=== PATIENT | female | born 1980 | race African-American/Black ===

== ENCOUNTER 2016-07-01 18:18 | Observation (INO) | payer OTHER ==
[~2016-07-01] VITALS: Ht 180.3 cm; Wt 150.0 kg
[2016-07-01 18:21] VITALS: BP 169/78; PULSE 119; RESP 16; TEMP 98.7; O2SAT 99
--- NOTE | 2016-07-01 18:26 | PD ---
Physical Exam Time Seen by Provider: 18:23 Narrative 35yo F c/o elevated BP reading, BRAUN, chest pain, and SOB today. Takes BP medication and only took one of her two medications today. Denies vomiting. Patient stable. Patient seen in triage. Awaiting bed placement. Data Data Last Documented VS Vital Signs Date Time Temp Pulse Resp B/P Pulse Ox O2 Delivery O2 Flow Rate FiO2 07/01/16 18:21 98.7 119 16 169/78 99 MDM Supervised Visit with MITCHELL: Michelle Walker Jul 01, 2016 18:26
--- NOTE | 2016-07-01 18:32 | PD ---
HPI Chief Complaint: Chest Pain Time Seen by Provider: 18:32 Travel History International Travel<30 days: No Contact w/Intl Traveler<30days: No Traveled to known affect area: No History of Present Illness HPI 35-year-old female with history of DM, HTN, CVA April 2016 presents to the ED for evaluation of headache, high blood pressure and left-sided chest pain. Headache described as constant, dull, all over, similar to previous headaches. Chest pain onset yesterday while the patient was having an argument. She endorses accompanying nausea, palpitations. She states the episode lasted approximately 10-15 minutes before resolving spontaneously. Patient's friend is at bedside states that the patient had an episode of dizziness today. They took her blood pressure and it was 225/175. The patient endorses compliance with her daily medications. She states that she was taken to [facility] after her stroke. She was discharged, but has no primary care or neurology follow-up. She states that she was instructed to have speech therapy, occupational therapy and physical therapy. She states that she had a stroke while she was incarcerated and prior to that was homeless. PFSH Past Medical History Cardiovascular Problems: Yes (HTN ) Diabetes: Yes Respiratory: Yes (ASTHMA ) ?: Not LMP: A MONTH AGO Social History Tobacco Use: No Substance Use: Yes (history) Allergies-Medications (Allergen,Severity, Reaction): Coded Allergies: No Known Allergies (Unverified , 07/01/16) Reported Meds & Prescriptions Reported Meds & Active Scripts Active Reported Atorvastatin (Atorvastatin Calcium) 40 Mg Tab 40 Mg PO HS Amlodipine (Amlodipine Besylate) 10 Mg Tab 10 Mg PO DAILY Metformin (Metformin HCl) 500 Mg Tab 500 Mg PO BID With meals Klonopin (Clonazepam) 0.5 Mg Tab 0.5 Mg PO DAILY Zoloft (Sertraline HCl) 100 Mg Tab 100 Mg PO DAILY Review of Systems Except as stated in HPI: all other systems reviewed are Neg Physical Exam Narrative GENERAL: Well-nourished, well-developed pleasant, cooperative obese black female in no acute distress. SKIN: Focused skin assessment warm/dry. HEAD: Normocephalic. EYES: No scleral icterus. No injection or drainage. PERRLA. EOMI NECK: Supple, trachea midline. No JVD or lymphadenopathy. CARDIOVASCULAR: Regular rate and rhythm without murmurs, gallops, or rubs. 2+ DP and radial pulses bilaterally. CHEST: Nontender throughout without deformity or crepitance. No retractions or use of accessory muscles. RESPIRATORY: Breath sounds clear and equal bilaterally. . GASTROINTESTINAL: Abdomen soft, non-tender, nondistended. MUSCULOSKELETAL: No cyanosis, or edema. NEUROLOGICAL: Awake and alert. Cranial nerves II through XII intact. Motor and sensory grossly within normal limits. Five out of 5 muscle strength in all muscle groups. Mildly slurred speech. Residual right-sided deficit, patient statesthis is her normal. BACK: Nontender without obvious deformity. No CVA tenderness. Data Data Last Documented VS Orders Electrocardiogram (07/01/16 18:35) Basic Metabolic Panel (Bmp) (07/01/16 18:35) Ckmb (Isoenzyme) Profile (07/01/16 18:35) Complete Blood Count With Diff (07/01/16 18:35) Magnesium (Mg) (07/01/16 18:35) Prothrombin Time / Inr (Pt) (07/01/16 18:35) Act Partial Throm Time (Ptt) (07/01/16 18:35) Troponin I (07/01/16 18:35) Chest, Single Ap (07/01/16 18:35) Ecg Monitoring (07/01/16 18:35) Bilateral Bp Monitoring (07/01/16 18:35) Iv Access Insert/Monitor (07/01/16 18:35) Oximetry (07/01/16 18:35) Sodium Chloride 0.9% Flush (Ns Flush) (07/01/16 18:45) Ct Brain W/O Iv Contrast(Rout) (07/01/16 18:47) CKMB (07/01/16 18:50) CKMB% (07/01/16 18:50) Sodium Chlor 0.9% 1000 Ml Inj (Ns 1000 M (07/01/16 19:45) D-Dimer (07/01/16 20:25) Ibuprofen (Motrin) (07/01/16 21:00) Place In Observation (07/01/16 21:25) Activity Bed Rest With Brp (07/01/16 21:25) Vital Signs (Adult) Q4H (07/01/16 21:25) Cardiac Rhythm .As Directed (07/01/16 21:25) Notify Dr: Other .PRN (07/01/16 21:25) Notify Parameters (07/01/16 21:25) Resp Oxygen Nasal Cannula (07/01/16 ) Ckmb (Isoenzyme) Profile (07/01/16 21:25) Ckmb (Isoenzyme) Profile (07/02/16 00:25) Troponin I (07/01/16 21:25) Troponin I (07/02/16 00:25) Electrocardiogram (07/01/16 21:25) Electrocardiogram (07/02/16 00:25) ^ Obtain (07/01/16 21:25) Sodium Chloride 0.9% Flush (Ns Flush) (07/01/16 21:30) Sodium Chloride 0.9% Flush (Ns Flush) (07/02/16 09:00) Sales And Service Advisor / Telemetry [email or web address] (07/01/16 21:25) Admit Order (Ed Use Only) (07/01/16 21:25) CKMB (07/01/16 21:05) CKMB% (07/01/16 21:05) Labs MDM Medical Decision Making Medical Screen Exam Complete: Yes Emergency Medical Condition: Yes Differential Diagnosis Hypertensive urgency versus CVA versus chest pain versus ACS versus PE versus other Narrative Course 35-year-old female with history of DM, HTN, CVA April 2016 presents to the ED for evaluation of headache, high blood pressure and left-sided chest pain. Headache described as constant, dull, all over, similar to previous headaches. Chest pain onset yesterday while the patient was having an argument. She endorses accompanying nausea, palpitations. She states the episode lasted approximately 10-15 minutes before resolving spontaneously. Patient's friend is at bedside states that the patient had an episode of dizziness today. They took her blood pressure and it was 225/175. The patient endorses compliance with her daily medications. She has a history of non-IV drug use. Unsure of family cardiac history. Vitals reviewed. Physical exam reveals an obese black female in no acute distress. No discernible M/R/G. No tenderness to palpation of the precordium. Chest CTAB. Abdomen protuberant, nontender. No swelling of the lower extremities. IV was established. Patient was placed on continuous monitoring. No concerning abnormalities of CBC, CMP or UA. Cardiac enzymes negative 1. D-dimer negative. Chest x-ray poorly aerated but negative for acute process. CT of the head shows no acute disease per radiology read. EKG rate 105, sinus rhythm. Normal axis. No ST changes, reviewed by Dr. Bell. Patient was administered ibuprofen and reports improvement of her headache. We'll admit for serial cardiac enzymes and EKGs. Please see chest pain center notes for disposition. Bailey Booker Jul 01, 2016 18:32 Mean Platelet Volume 10.2 FL Neutrophils (%) (Auto) 63.6 % Lymphocytes (%) (Auto) 27.6 % Monocytes (%) (Auto) 7.2 % Eosinophils (%) (Auto) 1.3 % Basophils (%) (Auto) 0.3 % Neutrophils # (Auto) 8.2 TH/MM3 Lymphocytes # (Auto) 3.5 TH/MM3 Monocytes # (Auto) 0.9 TH/MM3 Eosinophils # (Auto) 0.2 TH/MM3 Basophils # (Auto) 0.0 TH/MM3 CBC Comment DIFF FINAL Differential Comment Prothrombin Time 9.8 SEC Prothromb Time International 0.9 RATIO Ratio Activated Partial 27.7 SEC Thromboplast Time D-Dimer Quantitative (PE/DVT) 0.39 MG/L FEU Sodium Level 138 MEQ/L Potassium Level 4.0 MEQ/L Chloride Level 101 MEQ/L Carbon Dioxide Level 31.1 MEQ/L Anion Gap 6 MEQ/L Blood Urea Nitrogen 9 MG/DL Creatinine 0.79 MG/DL Estimat Glomerular Filtration 82 ML/MIN Rate Random Glucose 136 MG/DL Calcium Level 8.7 MG/DL Magnesium Level 2.0 MG/DL Total Creatine Kinase 152 U/L Creatine Kinase MB LESS THAN 0.5 NG/ML Troponin I LESS THAN 0.02 NG/ML MDM Medical Decision Making Medical Screen Exam Complete: Yes Emergency Medical Condition: Yes Differential Diagnosis Hypertensive urgency versus CVA versus chest pain versus ACS versus PE versus other Narrative Course 35-year-old female with history of DM, HTN, CVA April 2016 presents to the ED for evaluation of headache, high blood pressure and left-sided chest pain. Headache described as constant, dull, all over, similar to previous headaches. Chest pain onset yesterday while the patient was having an argument. She endorses accompanying nausea, palpitations. She states the episode lasted approximately 10-15 minutes before resolving spontaneously. Patient's friend is at bedside states that the patient had an episode of dizziness today. They took her blood pressure and it was 225/175. The patient endorses compliance with her daily medications. She has a history of non-IV drug use. Unsure of family cardiac history. Vitals reviewed. Physical exam reveals an obese black female in no acute distress. No discernible M/R/G. No tenderness to palpation of the precordium. Chest CTAB. Abdomen protuberant, nontender. No swelling of the lower extremities. IV was established. Patient was placed on continuous monitoring. No concerning abnormalities of CBC, CMP or UA. Cardiac enzymes negative 1. D-dimer negative. Chest x-ray poorly aerated but negative for acute process. CT of the head shows no acute disease per radiology read. EKG rate 105, sinus rhythm. Normal axis. No ST changes, reviewed by Dr. Bell. Patient was administered ibuprofen and reports improvement of her headache. We'll admit for serial cardiac enzymes and EKGs. Please see chest pain center notes for disposition. Bailey Booker Jul 01, 2016 18:32
[2016-07-01 18:39] VITALS: RESP 16; TEMP 99; O2SAT 99
[2016-07-01] MEDS ORDERED: SODIUM CHLORIDE 0.9% FLUSH 10 ML FLUSH IVF PRN (18:45)
--- NOTE | 2016-07-01 19:08 | RADRPT ---
EXAM DATE/TIME: 07/01/2016 18:53 [facility] COMPARISON: No previous studies available for comparison. INDICATIONS : Chest pain MEDICAL HISTORY : Hypertension. SURGICAL HISTORY : None. ENCOUNTER: Initial ACUITY: 1 day PAIN SCORE: 4/10 LOCATION: Bilateral chest FINDINGS: Shallow lung volumes. Cardiomegaly. No definite consolidation or effusion. Mild basilar atelectasis. CONCLUSION: Shallow lung volumes limit this study. Vinay Macedo MD on July 01, 2016 at 19:06 Board Certified Radiologist. This report was verified electronically.
[2016-07-01] MEDS ORDERED: METF500T PO (19:12)
[2016-07-01] MEDS ORDERED: CLON.5 PO (19:12)
[2016-07-01] MEDS ORDERED: ZOLO100T PO (19:12)
[2016-07-01] MEDS ORDERED: ATOR40TA16 PO (19:12)
[2016-07-01] MEDS ORDERED: AMLO10TA2 PO (19:12)
[2016-07-01 19:21] LABS: APTT (PATIENT) 27.7 SEC (24.3-30.1); INTERNATIONAL NORMALIZED RATIO 0.9 RATIO; PROTHROMBIN TIME - PATIENT 9.8 SEC (9.8-11.6)
[2016-07-01 19:26] LABS: AUTOMATED NEUTROPHIL # 8.2 TH/MM3 (1.8-7.7); BASOPHIL % 0.3 % (0.0-2.0); EOSINOPHIL # 0.2 TH/MM3 (0-0.4); EOSINOPHIL % 1.3 % (0.0-4.0); HEMATOCRIT 37.2 % (35.0-46.0); HEMO FLAGS DIFF FINAL; LYMPH % 27.6 % (9.0-44.0); LYMPHOCYTE # 3.5 TH/MM3 (1.0-4.8); MEAN CELL VOLUME 88.3 FL (80.0-100.0); MEAN CORPUSCULAR HEMOGLOBIN 28.4 PG (27.0-34.0); MEAN CORPUSCULAR HGB CONC 32.2 % (32.0-36.0); MONO % 7.2 % (0.0-8.0); NEUT % 63.6 % (16.0-70.0); PLATELET COUNT 261 TH/MM3 (150-450); RED BLOOD COUNT 4.21 MIL/MM3 (4.00-5.30); RED CELL DISTRIBUTION WIDTH 14.3 % (11.6-17.2); WHITE BLOOD COUNT 12.8 TH/MM3 (4.0-11.0)
[2016-07-01 19:39] LABS: ANION GAP 6 MEQ/L (5-15); BICARBONATE 31.1 MEQ/L (21.0-32.0); BLOOD UREA NITROGEN 9 MG/DL (7-18); CHLORIDE 101 MEQ/L (98-107); CREATINE KINASE 152 U/L (26-192); GLOMERULAR FILTRATION RATE 82 ML/MIN (>89); SODIUM (NA) 138 MEQ/L (136-145)
--- NOTE | 2016-07-01 19:39 | RADRPT ---
EXAM DATE/TIME: 07/01/2016 19:15 [facility] COMPARISON: No previous studies available for comparison. INDICATIONS : Dizziness and cephalgia. RADIATION DOSE: 56.35 CTDIvol (mGy) MEDICAL HISTORY : Cardiovascular disease. Hypertension. Diabetes mellitus type 2.CVA. SURGICAL HISTORY : None. ENCOUNTER: Initial ACUITY: 1 day PAIN SCALE: 3/10 LOCATION: Right cranial TECHNIQUE: Multiple contiguous axial images were obtained of the head. Using automated exposure control and adj ustment of the mA and/or kV according to patient size, radiation dose was kept as low as reasonably a chievable to obtain optimal diagnostic quality images. FINDINGS: No hemorrhage, infarct, or mass. There are prominent diffuse dural calcifications identified no fract ures are seen. CONCLUSION: No acute disease. Vinay Macedo MD on July 01, 2016 at 19:36 Board Certified Radiologist. This report was verified electronically.
[2016-07-01] MEDS ORDERED: SODIUM CHLOR 0.9% 1000 ML INJ 1,000 ML IV ONE (19:45)
[2016-07-01 19:51] LABS: CKMB LESS THAN 0.5 NG/ML (0.5-3.6)
[2016-07-01 20:58] VITALS: BP 160/72; PULSE 102; RESP 20; TEMP 98.6; O2SAT 98
[2016-07-01] MEDS ORDERED: IBUPROFEN 800 MG TAB PO ONE (21:00)
[2016-07-01] MEDS ORDERED: SODIUM CHLORIDE 0.9% FLUSH 10 ML FLUSH IV FLUSH PRN (21:30)
[2016-07-01 22:41] VITALS: BP 151/93; PULSE 100; RESP 22; TEMP 98; O2SAT 98
[2016-07-01 23:37] LABS: CREATINE KINASE 113 U/L (26-192)
[2016-07-01] MEDS ORDERED: ACETAMINOPHEN/HYDROcodone 325 MG/5 MG TAB PO ONE (23:45)
[2016-07-01 23:49] LABS: CKMB LESS THAN 0.5 NG/ML (0.5-3.6)
[2016-07-02 01:26] VITALS: BP 134/79; PULSE 97; RESP 18; TEMP 99.4; O2SAT 96
[2016-07-02 02:10] LABS: CREATINE KINASE 99 U/L (26-192)
[2016-07-02 05:26] VITALS: BP 162/89; PULSE 92; RESP 18; TEMP 98.9; O2SAT 96
[2016-07-02 07:58] VITALS: O2SAT 95
--- NOTE | 2016-07-02 08:38 | EKG ---
Date Performed: 07/02/2016 Time Performed: 00:56:23 PTAGE: 35 years EKG: Sinus rhythm WITH SINUS ARRHYTHMIA NONSPECIFIC T-WAVE ABNORMALITY BORDERLINE ECG PREVIOUS TRACING : 07/01/2016 21.09 Compared to previous tracing, nonspecific T wave abnormalit y is now evident. DOCTOR: Rafa Medeiros Interpretating Date/Time 07/02/2016 08:37:11
[2016-07-02 08:39] VITALS: BP 126/74; PULSE 81; RESP 18; TEMP 97.8; O2SAT 100
[2016-07-02] MEDS ORDERED: DEXTROSE 50% IN WATER 50 ML VIAL(D50) IV PRN (08:45)
[2016-07-02] MEDS ORDERED: GLUCAGON 1 MG/ML VIAL IM/SQ PRN (08:45)
--- NOTE | 2016-07-02 08:45 | EKG ---
Date Performed: 07/01/2016 Time Performed: 21:09:45 PTAGE: 35 years EKG: Sinus rhythm NORMAL ECG PREVIOUS TRACING : 07/01/2016 18.51 No significant change from previous tracing noted. DOCTOR: Rafa Medeiros Interpretating Date/Time 07/02/2016 08:44:37
--- NOTE | 2016-07-02 08:54 | EKG ---
Date Performed: 07/01/2016 Time Performed: 18:51:52 PTAGE: 35 years EKG: SINUS TACHYCARDIA NONSPECIFIC T-WAVE ABNORMALITY ABNORMAL RHYTHM ECG NO PREVIOUS TRACING DOCTOR: Rafa Medeiros Interpretating Date/Time 07/02/2016 08:51:05
--- NOTE | 2016-07-02 08:58 | HHI.HP ---
HPI Primary Care Physician No Primary Care Physician Chief Complaint Chest pain History of Present Illness This is a 35-year-old female that presents to ED complaining of chest discomfort that began 2 days ago. The first episode last about 15-20 minutes. That was 2 days ago. Yesterday she had a similar discomfort lasting same. Time but reoccurred over the next 3-4 hours. She also complaining of a headache. She was concerned and checked her blood pressure and found it to be 199/168. She then states that she had not taken her amlodipine for several days. States she had run out of it. She then decided to come to the ED. States she history of hypertension diabetes hyperlipidemia and had a CVA in April. She was in [place] when that occurred. She has no local doctor at this time. She has all the other medications that she should be taking. She lives with her mother. Denies . Review of Systems General: Patient denies fevers, chills recent, and recent travel HEENT: Patient had a headache yesterday. Patient denies sore throat, difficulty swallowing. Cardiovascular: Has the chest discomfort as mentioned above. Denies sensation of heart beating rapidly or irregularly. No syncope. Denies diaphoresis. Respiratory: She was short of breath initially. Denies inspirational chest discomfort. Denies coughing wheezing or hemoptysis. GI: Patient denies nausea, vomiting, diarrhea, abdominal pain, bloody stools. Musculoskeletal: Patient denies joint pain or edema. Denies calf pain or edema. Neurovascular: Patient denies numbness, tingling in extremities. She had a headache yesterday. She complains sequelae from her stroke resulting in right- sided weakness and speech changes but this is unchanged from her stroke. Endocrine: Denies polyuria and polydipsia. Hematologic: Denies easy bruising. Skin: Denies rash or itching. Past Family Social History Allergies: Coded Allergies: No Known Allergies (Unverified , 07/01/16) Past Medical History Hypertension, hyperlipidemia, diabetes, CVA. Denies CAD. Past Surgical History Noncontributory. Reported Medications Reported Meds & Active Scripts Active Reported Atorvastatin (Atorvastatin Calcium) 40 Mg Tab 40 Mg PO HS Amlodipine (Amlodipine Besylate) 10 Mg Tab 10 Mg PO DAILY Metformin (Metformin HCl) 500 Mg Tab 500 Mg PO BID With meals Klonopin (Clonazepam) 0.5 Mg Tab 0.5 Mg PO DAILY Zoloft (Sertraline HCl) 100 Mg Tab 100 Mg PO DAILY Active Ordered Medications Current Medications Medications (Trade) Dose Ordered Sig/Randi Route Start Time Stop Time Status Last Admin (NS Flush) 2 ml UNSCH PRN IVF 07/01/16 18:45 (NS Flush) 2 ml UNSCH PRN IV FLUSH 07/01/16 21:30 (NS Flush) 2 ml BID IV FLUSH 07/02/16 09:00 (Norvasc) 10 mg DAILY PO 07/02/16 09:00 UNV (Lipitor) 40 mg HS PO 07/02/16 21:00 UNV (KlonoPIN) 0.5 mg DAILY PO 07/02/16 09:00 UNV (Zoloft) 100 mg DAILY PO 07/02/16 09:00 UNV (D50w (Vial) Inj) 25 ml UNSCH PRN IV 07/02/16 08:45 UNV (Glucagon Inj) 1 mg UNSCH PRN IM/SQ 07/02/16 08:45 UNV Family History She is unaware of her family medical history. Social History Patient does not smoke, use alcohol, or use illicit drugs. Physical Exam Vital Signs Vital Signs Date Time Temp Pulse Resp B/P Pulse Ox O2 Delivery O2 Flow Rate FiO2 07/02/16 08:39 97.8 81 18 126/74 100 07/02/16 05:26 98.9 92 18 162/89 96 07/02/16 01:26 99.4 97 18 134/79 96 07/02/16 01:18 16 07/01/16 22:41 98.0 100 22 151/93 98 07/01/16 20:58 98.6 102 20 160/72 98 Room Air 07/01/16 18:39 16 99 Room Air 07/01/16 18:21 98.7 119 16 169/78 99 Physical Exam GENERAL: This is a well-nourished, well-developed patient, in no apparent distress. Patient speaks in clear complete sentences. Patient is pleasant. Patient is morbidly obese. HEENT: Head is atraumatic and normocephalic. Neck is supple without lymphadenopathy and trachea is midline. No JVD or carotid bruits. CARDIOVASCULAR: Regular rate and rhythm without murmurs, gallops, or rubs. RESPIRATORY: Clear to auscultation. Breath sounds equal bilaterally. No wheezes , rales, or rhonchi. Chest wall is nontender. No use of accessory muscles. GASTROINTESTINAL: Abdomen is nontender, nondistended. Abdomen soft. No obvious pulsatile mass or bruit. No CVA tenderness. Strong femoral pulses bilaterally. Normal bowel sounds in all quadrants. MUSCULOSKELETAL: Patient is moving upper and lower extremities however right side is 3 out of 5.. No calf tenderness or edema, no Homans sign. Strong pulses in upper and lower extremities. NEUROLOGICAL: Patient is alert and oriented. Cranial nerves 2-12 are grossly intact. No focal deficits and speech is clear. SKIN: No rash and turgor is normal. Laboratory Laboratory Tests Test 07/01/16 07/01/16 07/02/16 18:50 21:05 00:50 White Blood Count 12.8 Red Blood Count 4.21 Hemoglobin 12.0 Hematocrit 37.2 Mean Corpuscular Volume 88.3 Mean Corpuscular Hemoglobin 28.4 Mean Corpuscular Hemoglobin 32.2 Concent Red Cell Distribution Width 14.3 Platelet Count 261 Mean Platelet Volume 10.2 Neutrophils (%) (Auto) 63.6 Lymphocytes (%) (Auto) 27.6 Monocytes (%) (Auto) 7.2 Eosinophils (%) (Auto) 1.3 Basophils (%) (Auto) 0.3 Neutrophils # (Auto) 8.2 Lymphocytes # (Auto) 3.5 Monocytes # (Auto) 0.9 Eosinophils # (Auto) 0.2 Basophils # (Auto) 0.0 CBC Comment DIFF FINAL Differential Comment Prothrombin Time 9.8 Prothromb Time International 0.9 Ratio Activated Partial 27.7 Thromboplast Time D-Dimer Quantitative (PE/DVT) 0.39 Sodium Level 138 Potassium Level 4.0 Chloride Level 101 Carbon Dioxide Level 31.1 Anion Gap 6 Blood Urea Nitrogen 9 Creatinine 0.79 Estimat Glomerular Filtration 82 Rate Random Glucose 136 Calcium Level 8.7 Magnesium Level 2.0 Total Creatine Kinase 152 113 99 Creatine Kinase MB LESS THAN 0.5 LESS THAN 0.5 Troponin I LESS THAN 0.02 LESS THAN 0.02 LESS THAN 0.02 Result Diagram: 07/01/16 18507/01/16 185 Imaging Last [address] 07/01/16 852 Signed Impressions: Service Date/Time: Friday, July 01, 2016 19:15 - CONCLUSION: No acute disease. Vinay Macedo MD Chest X-Ray 07/01/16 1835 Signed Impressions: Service Date/Time: Friday, July 01, 2016 18:53 - CONCLUSION: Shallow lung volumes limit this study. Vinay Macedo MD Course EKGs a sinus rhythm without significant ST segment depressions or elevations. Assessment and Plan Assessment and Plan * Chest pain: Patient has had serial cardiac enzymes and EKGs for ruling out purposes. She has been seen by Dr. Mcgregor of cardiology in the chest pain center and will undergo a Lexiscan. She'll be discharged of Lexiscan is nonischemic. She will need follow-up with a local primary care physician. * Hypertension: Patient ran out of her medication. Amlodipine will be restarted. * Hyperlipidemia: Continue current medication. * History of CVA: Patient is to continue medication. She needs to take aspirin. She will need to follow-up local physician. * Morbid obesity: Patient has been counseled on importance of diet, excess, and weight loss. * Diabetes: Patient is follow diabetic diet. She will resume her home medications at discharge. Horacio Gorman Jul 02, 2016 08:58
[2016-07-02] MEDS ORDERED: SERTRALINE HCL 100 MG TAB PO SCH (09:00)
[2016-07-02] MEDS ORDERED: SODIUM CHLORIDE 0.9% FLUSH 10 ML FLUSH IV FLUSH SCH (09:00)
[2016-07-02] MEDS ORDERED: clonazePAM 0.5 MG TAB PO SCH (09:00)
[2016-07-02] MEDS ORDERED: INSULIN ASPART SUPPLEMENTAL SCALE SQ SCH (11:00)
[2016-07-02] MEDS ORDERED: REGADENOSON INJ 0.4 MG/5 ML SYR ONE (11:31)
[2016-07-02] MEDS ORDERED: AMINOPHYLLINE INJ 250 MG/10 ML VIAL ONE (12:06)
--- NOTE | 2016-07-02 14:17 | RADRPT ---
EXAM DATE/TIME: 07/02/2016 10:36 [facility] COMPARISON: No previous studies available for comparison. INDICATIONS : Left chest pain with nausea. Angina. DOSE: 35.0 mCi Tc99m Myoview at stress. 11.0 mCi Tc99m Myoview at rest. 0.4 mg Lexiscan STRESS SYMPTOMS: Stomach pain and dyspnea. MEDICATIONS: 1.) 100 mg Aminophylline IV EJECTION FRACTION: 40% MEDICAL HISTORY : Hypercholesterolemia. Diabetes mellitus type 2. Hypertension. Stroke. SURGICAL HISTORY : Dilation and Curettage. ENCOUNTER: Initial ACUITY: 2 days PAIN SCALE: 6/10 LOCATION: Left chest TECHNIQUE: The patient underwent pharmacologic stress with infusion of prescribed dose. Continuous ECG tracing was monitored during stress. Gated SPECT imaging was performed after stress and conventional SPECT i maging was performed at rest. The examination was performed on a SPECT/CT scanner, both attenuation and non-corrected datasets were reviewed. FINDINGS: DISTRIBUTION: The maximum perfused segment at stress is in the inferior wall. PERFUSION STUDY: The pattern of perfusion at stress is within normal limits with no reversibility to suggest ischemia. Minimal apical thinning. GATED STUDY: Sluggish wall motion with paradoxical motion in the apex. CONCLUSION: 1. No scintigraphic findings of ischemia. 2. However, there is diffuse hypokinesis with paradoxical motion in the apex and a reduced ejection f raction of 40%. RISK CATEGORY: Low (<1% Annual Mortality Rate) Geovany Atkins MD on July 02, 2016 at 14:10 Board Certified Radiologist. This report was verified electronically.
[2016-07-02] MEDS ORDERED: ASPI1TAB69 PO (14:45)
--- NOTE | 2016-07-02 14:47 | HHI.DCPOC ---
Discharge Care Plan Diagnosis: (1) Chest pain (2) Hypertension (3) Hyperlipidemia (4) DM (diabetes mellitus) (5) History of CVA (cerebrovascular accident) (6) Obesity Goals to Promote Your Health * To prevent worsening of your condition and complications * To maintain your health at the optimal level Directions to Meet Your Goals Take your medications as prescribed Follow your dietary instruction Follow activity as directed Keep your appointments as scheduled Take your immunizations and boosters as scheduled If your symptoms worsen call your PCP, if no PCP go to Urgent Care Center or Emergency Room Smoking is Dangerous to Your Health. Avoid second hand smoke Call the 24-hour hour crisis hotline for domestic abuse at Horacio Gorman Jul 02, 2016 14:47
[2016-07-02 15:18] VITALS: BP 167/83; PULSE 93; RESP 23; TEMP 99.7; O2SAT 98
--- NOTE | 2016-07-02 17:28 | TR ---
Date Performed: 07/02/2016 Time Performed: 11:29:22 DOCTOR: Casandra Mcgregor DRUG LIST: CLINICAL HISTORY: REASON FOR TEST: Angina REASON FOR ENDING: OBSERVATION: CONCLUSION: Lexiscan stress test was performed under standard four minute protocol. Radionuclid e was injected one minute prior to ending the test. No electrocardiographic abormalities were present to suggest ischemia. Nuclear imaging and interpretation are pending. COMMENTS:
[2016-07-02] MEDS ORDERED: ATORVASTATIN 40 MG TAB PO SCH (21:00)
== END 2016-07-02 15:48 | disposition home or self-care (01) ==
LOC: NEPE 18:18 → NEDA 21:27 → NEPGCP 22:19
PROVIDERS: ADMIT Internal Medicine Cardiovascular Disease; ATTEND Internal Medicine Cardiovascular Disease
DX: R07.89 Other chest pain (principal); I10 Essential (primary) hypertension; E78.5 Hyperlipidemia, unspecified; E11.69 Type 2 diabetes mellitus with other specified complication; R94.31 Abnormal electrocardiogram [ECG] [EKG]; J45.909 Unspecified asthma, uncomplicated; E66.01 Morbid (severe) obesity due to excess calories; Z68.42 Body mass index [BMI] 45.0-49.9, adult; Z86.73 Personal history of transient ischemic attack (TIA), and cerebral infarction without residual deficits
CPT/HCPCS: 70450; 71010; 78452; 80048; 82550; 82552; 82948; 83735; 84484; 85025; 85379; 85610; 85730; 93005; 93017; 99285; A9502; G0378; J0280; J2785; J7030

== ENCOUNTER 2016-07-30 18:52 | Emergency (ER) | payer OTHER ==
[~2016-07-30] VITALS: Ht 180.3 cm; Wt 165.0 kg
[~2016-07-30 18:52] MED LIST: AMLO10TA2 PO; ASPI1TAB69 PO; ATOR40TA16 PO; CLON.5 PO; METF500T PO; ZOLO100T PO
[2016-07-30 19:07] VITALS: BP 165/126; PULSE 110; RESP 23; TEMP 99.3; O2SAT 100
[2016-07-30] MEDS ORDERED: SODIUM CHLOR 0.9% 1000 ML INJ 1,000 ML IV SCH (19:13)
[2016-07-30 19:15] VITALS: PULSE 106; RESP 16; O2SAT 100
[2016-07-30] MEDS ORDERED: SODIUM CHLORIDE 0.9% FLUSH 10 ML FLUSH IV FLUSH PRN (19:15)
[2016-07-30] MEDS ORDERED: MORPHINE SULFATE 4 MG/ML INJ IV PUSH ONE (19:15)
[2016-07-30] MEDS ORDERED: ONDANSETRON HCL 4 MG/2 ML VIAL IVP ONE (19:15)
--- NOTE | 2016-07-30 19:28 | PD ---
HPI Chief Complaint: Abdominal Pain Time Seen by Provider: 19:06 Travel History International Travel<30 days: No Contact w/Intl Traveler<30days: No Traveled to known affect area: No History of Present Illness HPI Patient is a 35-year-old female with history of CVA, DM, HTN, April 2016 presents to emergency room with complaints of abdominal pain. She reports that she woke up this morning began to have lower abdominal pain. She reports that she has greatest pain to her umbilicus. Patient reports that every time she eats, she feels nauseous and vomits it up. Reports that she did have a few episodes of diarrhea today. Patient denies any sick contacts, denies any fevers or chills. Patient denies any vaginal discharge or bleeding. Reports that she has never had pain like this in the past. Patient denies any recent travels. Patient with no chest pain or shortness of breath at this time, no other complaints. PFSH Past Medical History Cardiovascular Problems: Yes (OK 2 WEEKS AGO) High Cholesterol: Yes Cerebrovascular Accident: Yes (X2) Diabetes: Yes Patient Takes Glucophage: No (UNKNOWN) Glaucoma: Yes Hypertension: Yes Respiratory: Yes Tetanus Vaccination: Unknown Influenza Vaccination: No ?: Not LMP: 07/22/16 Ovarian Cysts: Yes Dilation and Curettage (D&C): Yes Past Surgical History Genitourinary Surgery: Yes (OVARIAN CYST REMOVAL ) Social History Alcohol Use: Yes (occasional) Tobacco Use: No Substance Use: Yes (history/MARIJUANA) Allergies-Medications (Allergen,Severity, Reaction): Coded Allergies: No Known Allergies (Unverified , 07/30/16) Reported Meds & Prescriptions Reported Meds & Active Scripts Active Macrobid (Nitrofurantoin Monoh/Nitrofur Macro) 100 Mg Cap 100 Mg PO BID 10 Days Reported Seroquel (Quetiapine Fumarate) 300 Mg Tab 300 Mg PO HS Proair Hfa 8.5 GM Inh (Albuterol Sulfate) 90 Mcg/Act Aer 2 Puff INH Q4-6H PRN 108 mcg/actuation Mobic (Meloxicam) 7.5 Mg Tab 7.5 Mg PO DAILY PRN Lisinopril 10 Mg Tab 10 Mg PO DAILY Aspirin 81 Mg Tabdr 81 Mg PO DAILY Atorvastatin (Atorvastatin Calcium) 40 Mg Tab 40 Mg PO HS Amlodipine (Amlodipine Besylate) 10 Mg Tab 10 Mg PO DAILY Metformin (Metformin HCl) 500 Mg Tab 500 Mg PO BID With meals Klonopin (Clonazepam) 0.5 Mg Tab 0.5 Mg PO DAILY Zoloft (Sertraline HCl) 100 Mg Tab 100 Mg PO DAILY Review of Systems General / Constitutional: No: Fever Eyes: No: Visual changes HENT: No: Headaches Cardiovascular: No: Chest Pain or Discomfort Respiratory: No: Shortness of Breath Gastrointestinal: Positive: Nausea, Vomiting, Abdominal Pain Genitourinary: No: Dysuria Musculoskeletal: No: Pain Skin: No Rash Neurologic: No: Weakness Psychiatric: No: Depression Endocrine: No: Polydipsia Hematologic/Lymphatic: No: Easy Bruising Physical Exam Narrative GENERAL: Moderate distress SKIN: Focused skin assessment warm/dry. HEAD: Atraumatic. Normocephalic. EYES: Pupils equal and round. No scleral icterus. No injection or drainage. ENT: No nasal bleeding or discharge. Mucous membranes pink and moist. NECK: Trachea midline. No JVD. CARDIOVASCULAR: Regular rate and rhythm. No murmur appreciated. RESPIRATORY: No accessory muscle use. Clear to auscultation. Breath sounds equal bilaterally. GASTROINTESTINAL: Abdomen soft, increased tenderness to the umbilicus as well as right lower quadrant, guarding on exam MUSCULOSKELETAL: No obvious deformities. No clubbing. No cyanosis. No edema. NEUROLOGICAL: Awake and alert. No obvious cranial nerve deficits. Motor grossly within normal limits. Normal speech. PSYCHIATRIC: Appropriate mood and affect; insight and judgment normal. Data Data Last Documented VS Vital Signs Date Time Temp Pulse Resp B/P Pulse Ox O2 Delivery O2 Flow Rate FiO2 07/30/16 23:20 99 22 124/69 100 Room Air 07/30/16 19:07 99.3 Orders Beta Hcg (Quant/Titer) (07/30/16 19:13) Complete Blood Count With Diff (07/30/16 19:13) Comprehensive Metabolic Panel (07/30/16 19:13) Lipase (07/30/16 19:13) Prothrombin Time / Inr (Pt) (07/30/16 19:13) Act Partial Throm Time (Ptt) (07/30/16 19:13) Urinalysis - C+S If Indicated (07/30/16 19:13) Ct Abd/Pel W Iv Contrast(Rout) (07/30/16 19:13) Iv Access Insert/Monitor (07/30/16 19:13) Ecg Monitoring (07/30/16 19:13) Oximetry (07/30/16 19:13) NPO (07/30/16 19:13) Morphine Inj (Morphine Inj) (07/30/16 19:15) Ondansetron Inj (Zofran Inj) (07/30/16 19:15) Sodium Chlor 0.9% 1000 Ml Inj (Ns 1000 M (07/30/16 19:13) Sodium Chloride 0.9% Flush (Ns Flush) (07/30/16 19:15) Electrocardiogram (07/30/16 19:13) Chest, Single Ap (07/30/16 19:13) Iohexol 350 Inj (Omnipaque 350 Inj) (07/30/16 21:55) ^ Straight Catheter (07/30/16 22:12) Urine Culture (07/30/16 23:26) Ceftriaxone Inj (Rocephin Inj) (07/31/16 00:00) Labs Laboratory Tests Test 07/30/16 07/30/16 19:25 23:26 White Blood Count 16.9 TH/MM3 Red Blood Count 4.70 MIL/MM3 Hemoglobin 13.4 GM/DL Hematocrit 41.3 % Mean Corpuscular Volume 87.9 FL Mean Corpuscular Hemoglobin 28.5 PG Mean Corpuscular Hemoglobin 32.4 % Concent Red Cell Distribution Width 14.1 % Platelet Count 282 TH/MM3 Mean Platelet Volume 9.5 FL Neutrophils (%) (Auto) 83.1 % Lymphocytes (%) (Auto) 11.9 % Monocytes (%) (Auto) 4.7 % Eosinophils (%) (Auto) 0.1 % Basophils (%) (Auto) 0.2 % Neutrophils # (Auto) 14.1 TH/MM3 Lymphocytes # (Auto) 2.0 TH/MM3 Monocytes # (Auto) 0.8 TH/MM3 Eosinophils # (Auto) 0.0 TH/MM3 Basophils # (Auto) 0.0 TH/MM3 CBC Comment DIFF FINAL Differential Comment Prothrombin Time 10.2 SEC Prothromb Time International 0.9 RATIO Ratio Activated Partial 27.8 SEC Thromboplast Time Sodium Level 138 MEQ/L Potassium Level 3.9 MEQ/L Chloride Level 100 MEQ/L Carbon Dioxide Level 29.5 MEQ/L Anion Gap 9 MEQ/L Blood Urea Nitrogen 5 MG/DL Creatinine 0.77 MG/DL Estimat Glomerular Filtration 102 ML/MIN Rate Random Glucose 117 MG/DL Calcium Level 8.9 MG/DL Total Bilirubin 0.2 MG/DL Aspartate Amino Transf 19 U/L (AST/SGOT) Alanine Aminotransferase 33 U/L (ALT/SGPT) Alkaline Phosphatase 111 U/L Total Protein 8.9 GM/DL Albumin 3.5 GM/DL Lipase 122 U/L Human Chorionic Gonadotropin, LESS THAN 1 Quant MIU/ML Urine Color YELLOW Urine Turbidity CLEAR Urine pH 6.5 Urine Specific [place] GREATER THAN 1.050 Urine Protein TRACE mg/dL Urine Glucose (UA) NEG mg/dL Urine Ketones NEG mg/dL Urine Occult Blood MOD Urine Nitrite NEG Urine Bilirubin NEG Urine Urobilinogen LESS THAN 2.0 MG/DL Urine Leukocyte Esterase MOD Urine RBC 5 /hpf Urine WBC 40 /hpf Urine Squamous Epithelial 8 /hpf Cells Urine Bacteria RARE /hpf Microscopic Urinalysis Comment CULTURE INDICATED MDM Medical Decision Making Medical Screen Exam Complete: Yes Emergency Medical Condition: Yes Interpretation(s) Vital Signs Date Time Temp Pulse Resp B/P Pulse Ox O2 Delivery O2 Flow Rate FiO2 07/30/16 19:07 99.3 110 23 165/126 100 Room Air Differential Diagnosis Appendicitis, colitis, ovarian cyst, ovarian torsion, electrolyte abnormality, gastroenteritis, uti Narrative Course Patient is a 35-year-old female who presents to emergency room with complaints of abdominal pain. She reports the pain began this morning when she woke up and has been persistent all day, reports the symptoms are associated with nausea and vomiting, she is unable to take in any fluids or food at this time. Patient uncomfortable at this time, patient does have significant periumbilical with right lower quadrant abdominal pain. Plan to obtain lab work, CT abdomen and pelvis IV contrast ordered to further evaluate etiology abdominal pain. Patient was placed on a telemetry monitor, was given IV fluids as well as antiemetics and medications for pain Laboratory Tests Test 07/30/16 07/30/16 19:25 23:26 White Blood Count 16.9 TH/MM3 (4.0-11.0) Red Blood Count 4.70 MIL/MM3 (4.00-5.30) Hemoglobin 13.4 GM/DL (11.6-15.3) Hematocrit 41.3 % (35.0-46.0) Mean Corpuscular Volume 87.9 FL (80.0-100.0) Mean Corpuscular Hemoglobin 28.5 PG (27.0-34.0) Mean Corpuscular Hemoglobin 32.4 % Concent (32.0-36.0) Red Cell Distribution Width 14.1 % (11.6-17.2) Platelet Count 282 TH/MM3 (150-450) Mean Platelet Volume 9.5 FL (7.0-11.0) Neutrophils (%) (Auto) 83.1 % (16.0-70.0) Lymphocytes (%) (Auto) 11.9 % (9.0-44.0) Monocytes (%) (Auto) 4.7 % (0.0-8.0) Eosinophils (%) (Auto) 0.1 % (0.0-4.0) Basophils (%) (Auto) 0.2 % (0.0-2.0) Neutrophils # (Auto) 14.1 TH/MM3 (1.8-7.7) Lymphocytes # (Auto) 2.0 TH/MM3 (1.0-4.8) Monocytes # (Auto) 0.8 TH/MM3 (0-0.9) Eosinophils # (Auto) 0.0 TH/MM3 (0-0.4) Basophils # (Auto) 0.0 TH/MM3 (0-0.2) CBC Comment DIFF FINAL Differential Comment Prothrombin Time 10.2 SEC (9.8-11.6) Prothromb Time International 0.9 RATIO Ratio Activated Partial 27.8 SEC Thromboplast Time (24.3-30.1) Sodium Level 138 MEQ/L (136-145) Potassium Level 3.9 MEQ/L (3.5-5.1) Chloride Level 100 MEQ/L (98-107) Carbon Dioxide Level 29.5 MEQ/L (21.0-32.0) Anion Gap 9 MEQ/L (5-15) Blood Urea Nitrogen 5 MG/DL (7-18) Creatinine 0.77 MG/DL (0.50-1.00) Estimat Glomerular Filtration 102 ML/MIN Rate (>89) Random Glucose 117 MG/DL (74-106) Calcium Level 8.9 MG/DL (8.5-10.1) Total Bilirubin 0.2 MG/DL (0.2-1.0) Aspartate Amino Transf 19 U/L (15-37) (AST/SGOT) Alanine Aminotransferase 33 U/L (10-53) (ALT/SGPT) Alkaline Phosphatase 111 U/L (45-117) Total Protein 8.9 GM/DL (6.4-8.2) Albumin 3.5 GM/DL (3.4-5.0) Lipase 122 U/L (73-393) Human Chorionic Gonadotropin, LESS THAN 1 Quant MIU/ML (0-5) Urine Color YELLOW (YELLW/STRAW) Urine Turbidity CLEAR (CLEAR) Urine pH 6.5 (5.0-8.5) Urine Specific [place] GREATER THAN 1.050 (1.002-1.035) Urine Protein TRACE mg/dL (NEG-TRACE) Urine Glucose (UA) NEG mg/dL (NEG) Urine Ketones NEG mg/dL (NEG) Urine Occult Blood MOD (NEG) Urine Nitrite NEG (NEG) Urine Bilirubin NEG (NEG) Urine Urobilinogen LESS THAN 2.0 MG/DL (LESS THAN 2.0) Urine Leukocyte Esterase MOD (NEG) Urine RBC 5 /hpf (0-3) Urine WBC 40 /hpf (0-5) Urine Squamous Epithelial 8 /hpf (0-5) Cells Urine Bacteria RARE /hpf (NONE) Microscopic Urinalysis Comment CULTURE INDICATED Last Impressions Chest X-Ray 07/30/[id number] Signed Impressions: Service Date/Time: Saturday, July 30, 2016 19:20 - CONCLUSION: No significant change. The heart size remains mildly prominent with no evidence of congestive heart failure. Sammy Giraldo MD Abdomen/Pelvis CT 07/30/161912 Signed Impressions: Service Date/Time: Saturday, July 30, 2016 21:34 - CONCLUSION: 1. Unremarkable bowel gas pattern. 2. Normal appendix. Sammy Giraldo MD Patient reevaluated, patient reports that she is feeling much better at this time. Abdomen is soft, nontender, nondistended, no peritoneal signs. I reviewed all labs and studies with patient in detail. Patient appears to have a urinary tract infection, urine culture sent. Patient Was given 1 dose of IV antibiotics, was sent home with a prescription for Macrobid. She will follow- up with cultures from today. Patient will return to emergency room if symptoms worsen or persist or return. Patient will follow-up with primary care doctor and return to emergency room as needed Diagnosis Primary Impression: Abdominal pain Qualified Code: R10.84 - Generalized abdominal pain Additional Impression: UTI (urinary tract infection) Qualified Code: N30.00 - Acute cystitis without hematuria Patient Instructions: General Instructions Additional Instructions: Please take all antibiotics as prescribed, please follow-up with cultures from today Return to the emergency room if symptoms worsen or progress or return Please return to the emergency room as needed Please follow-up with your primary care doctor in 2-3 days Med/Other Pt SpecificInfo: Prescription(s) given Scripts Nitrofurantoin Monohydrate Macrocrystals (Macrobid)100 Mg [id number] Mg PO BID 10 Days Ref 0 Prov:Ellen Reina DO 07/30/16 Disposition: 01 DISCHARGE HOME Condition: Stable Ellen Reina DO July 30, 2016 19:28 Ellen Reina DO July 30, 2016 19:28
[2016-07-30] MEDS ORDERED: ALBUAER3 INH (19:29)
[2016-07-30] MEDS ORDERED: SERO300T PO (19:29)
[2016-07-30] MEDS ORDERED: MOBI7.5T PO (19:29)
[2016-07-30] MEDS ORDERED: LISI10TA3 PO (19:29)
[2016-07-30 19:41] LABS: AUTOMATED NEUTROPHIL # 14.1 TH/MM3 (1.8-7.7); BASOPHIL % 0.2 % (0.0-2.0); EOSINOPHIL % 0.1 % (0.0-4.0); HEMATOCRIT 41.3 % (35.0-46.0); HEMO FLAGS DIFF FINAL; LYMPH % 11.9 % (9.0-44.0); MEAN CELL VOLUME 87.9 FL (80.0-100.0); MEAN CORPUSCULAR HEMOGLOBIN 28.5 PG (27.0-34.0); MEAN CORPUSCULAR HGB CONC 32.4 % (32.0-36.0); MONO % 4.7 % (0.0-8.0); NEUT % 83.1 % (16.0-70.0); PLATELET COUNT 282 TH/MM3 (150-450); RED CELL DISTRIBUTION WIDTH 14.1 % (11.6-17.2); WHITE BLOOD COUNT 16.9 TH/MM3 (4.0-11.0)
--- NOTE | 2016-07-30 19:48 | RADRPT ---
EXAM DATE/TIME: 07/30/2016 19:20 [facility] COMPARISON: CHEST SINGLE AP, July 01, 2016, 18:53. INDICATIONS : Lower chest pain. MEDICAL HISTORY : Hypertension. SURGICAL HISTORY : None. ENCOUNTER: Initial ACUITY: 1 day PAIN SCORE: 10/10 LOCATION: Bilateral chest FINDINGS: A single view of the chest demonstrates the lungs to be symmetrically aerated without evidence of mas s, infiltrate or effusion. The heart size remains mildly prominent. There is no perihilar edema. The re are multiple overlying electrocardiogram leads. Osseous structures are intact. CONCLUSION: No significant change. The heart size remains mildly prominent with no evidence of co ngestive heart failure. Sammy Giraldo MD on July 30, 2016 at 19:46 Board Certified Radiologist. This report was verified electronically.
[2016-07-30 20:00] LABS: APTT (PATIENT) 27.8 SEC (24.3-30.1); INTERNATIONAL NORMALIZED RATIO 0.9 RATIO; PROTHROMBIN TIME - PATIENT 10.2 SEC (9.8-11.6)
[2016-07-30 20:09] LABS: ANION GAP 9 MEQ/L (5-15); AST (GOT) 19 U/L (15-37); BICARBONATE 29.5 MEQ/L (21.0-32.0); BLOOD UREA NITROGEN 5 MG/DL (7-18); CHLORIDE 100 MEQ/L (98-107); GLOMERULAR FILTRATION RATE 102 ML/MIN (>89); POTASSIUM 3.9 MEQ/L (3.5-5.1); SODIUM (NA) 138 MEQ/L (136-145)
[2016-07-30 20:14] LABS: ALKALINE PHOSPHATASE 111 U/L (45-117); ALT (GPT) 33 U/L (10-53); BETA HCG QUANT LESS THAN 1 MIU/ML (0-5); TOTAL BILIRUBIN ADULT 0.2 MG/DL (0.2-1.0)
[2016-07-30] MEDS ORDERED: IOHEXOL 350 MG/ML 10 ML VIAL (for RAD DIAG) IV ONE (21:55)
--- NOTE | 2016-07-30 22:06 | RADRPT ---
EXAM DATE/TIME: 07/30/2016 21:34 [facility] COMPARISON: No previous studies available for comparison. INDICATIONS : Abdominal pain. IV CONTRAST: 100 cc Omnipaque 350 (iohexol) IV ORAL CONTRAST: No oral contrast ingested. RADIATION DOSE: 36.03 CTDIvol (mGy) MEDICAL HISTORY : Hypertension. Cerebrovascular disease. Myocardial infarction.Diabetes. Ovarian cysts. SURGICAL HISTORY : None. ENCOUNTER: Initial ACUITY: 1 day PAIN SCALE: 10/10 LOCATION: All quadrants. TECHNIQUE: Volumetric scanning of the abdomen and pelvis was performed. Using automated exposure control and ad justment of the mA and/or kV according to patient size, radiation dose was kept as low as reasonably achievable to obtain optimal diagnostic quality images. FINDINGS: LOWER LUNGS: The visualized lower lungs are clear. LIVER: Homogeneous density without lesion. There is no dilation of the biliary tree. No calcified gallston es. There is mild hepatic steatosis. SPLEEN: Normal size without lesion. PANCREAS: Within normal limits. KIDNEYS: Normal in size and shape. There is no mass, stone or hydronephrosis. ADRENAL GLANDS: Within normal limits. VASCULAR: There is no aortic aneurysm. BOWEL/MESENTERY: The stomach, small bowel, and colon demonstrate no acute abnormality. There is no free intraperitone al air or fluid. There is a normal appendix. ABDOMINAL WALL: Within normal limits. RETROPERITONEUM: There is no lymphadenopathy. BLADDER: No wall thickening or mass. REPRODUCTIVE: Within normal limits. An intrauterine device is present. INGUINAL: There is no lymphadenopathy or hernia. MUSCULOSKELETAL: Within normal limits for patient age. CONCLUSION: 1. Unremarkable bowel gas pattern. 2. Normal appendix. Sammy Giraldo MD on July 30, 2016 at 22:02 Board Certified Radiologist. This report was verified electronically.
[2016-07-30 23:20] VITALS: BP 124/69; PULSE 99; RESP 22; O2SAT 100
[2016-07-30 23:39] LABS: BACTERIA, URINE RARE /hpf; BLOOD, URINE MOD (NEG); COMMENT (UR) CULTURE INDICATED; CULTURE IF INDICATED CULTURE INDICATED; GLUCOSE,URINE NEG (NEG); KETONE, URINE NEG (NEG); NITRITE,URINE NEG (NEG); PH, URINE 6.5 (5.0-8.5); SQUAMOUS EPITHELIAL CELL URINE 8 /hpf (0-5); URINE COLOR YELLOW (YELLW/STRAW)
[2016-07-30] MEDS ORDERED: MACR100C2 PO (23:57)
[2016-07-31] MEDS ORDERED: cefTRIAXone INJ 1,000 MG in SODIUM CHLORIDE 0.9% INJ 100 ML IV ONE ×2
[2016-07-31] MEDS ORDERED: KETOROLAC TROMETHAMINE 30 MG/ML (IVP) VIAL IV PUSH ONE (00:45)
--- NOTE | 2016-07-31 19:40 | EKG ---
Date Performed: 07/30/2016 Time Performed: 19:29:19 PTAGE: 35 years EKG: SINUS TACHYCARDIA NONSPECIFIC T-WAVE ABNORMALITY ABNORMAL RHYTHM ECG Compared to prior trac ing no significant change DOCTOR: Wilmer Michael Interpretating Date/Time 07/31/2016 19:38:54
== END 2016-07-31 02:32 | disposition home or self-care (01) ==
LOC: NEPC 18:52
DX: R10.84 Generalized abdominal pain (principal); N30.00 Acute cystitis without hematuria; R11.2 Nausea with vomiting, unspecified; R19.7 Diarrhea, unspecified; R94.31 Abnormal electrocardiogram [ECG] [EKG]; E11.9 Type 2 diabetes mellitus without complications; I10 Essential (primary) hypertension; E78.00 Pure hypercholesterolemia, unspecified; Z79.84 Long term (current) use of oral hypoglycemic drugs; Z86.79 Personal history of other diseases of the circulatory system; Z86.69 Personal history of other diseases of the nervous system and sense organs; Z87.09 Personal history of other diseases of the respiratory system
CPT/HCPCS: 71010; 74177; 80053; 81001; 83690; 84702; 84703; 85025; 85610; 85730; 87086; 93005; 96361; 96365; 96375; 99285; J0696; J1885; J2270; J2405; J7030; Q9967

== ENCOUNTER 2016-09-17 22:25 | Observation (INO) | payer MEDICAID, OTHER ==
[~2016-09-17] VITALS: Ht 175.3 cm; Wt 140.0 kg
[~2016-09-17 22:25] MED LIST changes: +ALBUAER3 INH; +LISI10TA3 PO; +MACR100C2 PO; +MOBI7.5T PO; +SERO300T PO
[2016-09-17 22:30] VITALS: BP 178/114; PULSE 104; RESP 16; TEMP 99.9; O2SAT 99
--- NOTE | 2016-09-17 22:36 | PD ---
Physical Exam Date Seen by Provider: Sep 17, 2016 Time Seen by Provider: 22:34 Narrative 35 yo female here for evaluation of cold like symptoms. Comes via [facility] to triage. History of asthma. Having it for two days. Chest congestion. Productive cough. Some vomiting with cough. No sick contacts. History of stroke and take blood thinner. Vitals are stable in triage. Awaiting Bed placement. Data Data Last Documented VS Vital Signs Date Time Temp Pulse Resp B/P Pulse Ox O2 Delivery O2 Flow Rate FiO2 09/17/16 22:30 99.9 104 16 178/114 99 Room Air [facility] Medical Record Reviewed: Yes Supervised Visit with MITCHELL: No Francisco Javier Glynn Sep 17, 2016 22:36
[2016-09-18] VITALS (11 sets, daily range): BP systolic 137–184; BP diastolic 67–96; PULSE 99–138; RESP 15–20; TEMP 98.2–102.7; O2SAT 93–99
[2016-09-18] MEDS ORDERED: ASPIRIN 81 MG CHEW TAB PO ONE (00:15)
[2016-09-18] MEDS ORDERED: SODIUM CHLORIDE 0.9% FLUSH 10 ML FLUSH IVF PRN (00:15)
--- NOTE | 2016-09-18 00:37 | PD ---
HPI . fall / vomiting / chest pain / fatigue Chief Complaint: Chest Pain Time Seen by Provider: 00:05 Travel History International Travel<30 days: No Contact w/Intl Traveler<30days: No Traveled to known affect area: No History of Present Illness HPI 35 year old female with a history of stroke earlier this year, HTN and diabetes presents complaining of chest pain, fatigue and vomiting. Patient presents that she really came because she had a fall this morning. She reports feeling dizzy, falling and blacking out temporarily. When she woke up she noticed she had wet herself. Since the fall the patient has had a headache. She noted her blood pressure was high after the fall and laid down to relax. A few hours later she had about 5-6 episodes of emesis and was prompted to come in by her friend. Since the fall she has been feeling stiff all over. Patient also reports mid chest pain with radiation to her back that is sharp. She reports it is worse with breathing. She has also been feeling fatigue and had some cough, congestion , itchy throat since last night. Patient also complains of sharp pain and tingling over her right arm which has been going on since her stroke earlier this year. PFSH Past Medical History Hx Anticoagulant Therapy: Yes Cardiovascular Problems: Yes (HTN, MT) High Cholesterol: Yes Cerebrovascular Accident: Yes Diabetes: Yes Patient Takes Glucophage: Yes (pt currently out of med) Diminished Hearing: No Glaucoma: Yes Hypertension: Yes Respiratory: Yes (ASTHMA) ?: Not Ovarian Cysts: Yes Dilation and Curettage (D&C): Yes Past Surgical History Genitourinary Surgery: Yes (OVARIAN CYST REMOVAL ) Social History Alcohol Use: Yes (occasional) Tobacco Use: Yes (1ppd) Substance Use: Yes (history/MARIJUANA) Allergies-Medications (Allergen,Severity, Reaction): Coded Allergies: No Known Allergies (Unverified , 09/17/16) Reported Meds & Prescriptions Reported Meds & Active Scripts Active Reported Seroquel (Quetiapine Fumarate) 300 Mg Tab 300 Mg PO HS Proair Hfa 8.5 GM Inh (Albuterol Sulfate) 90 Mcg/Act Aer 2 Puff INH Q4-6H PRN 108 mcg/actuation Mobic (Meloxicam) 7.5 Mg Tab 7.5 Mg PO DAILY PRN Lisinopril 10 Mg Tab 10 Mg PO DAILY Aspirin 81 Mg Tabdr 81 Mg PO DAILY Atorvastatin (Atorvastatin Calcium) 40 Mg Tab 40 Mg PO HS Amlodipine (Amlodipine Besylate) 10 Mg Tab 10 Mg PO DAILY Metformin (Metformin HCl) 500 Mg Tab 500 Mg PO BID With meals Klonopin (Clonazepam) 0.5 Mg Tab 0.5 Mg PO DAILY Zoloft (Sertraline HCl) 100 Mg Tab 100 Mg PO DAILY Review of Systems General / Constitutional: Positive: Fever, Chills, Other (fatigue) HENT: Positive: Headaches, Sore Throat, Congestion Cardiovascular: Positive: Chest Pain or Discomfort Respiratory: Positive: Cough, Shortness of Breath, No: Wheezing Gastrointestinal: Positive: Nausea, Vomiting, No: Abdominal Pain, Hematemesis Genitourinary: No: Frequency, Dysuria Musculoskeletal: Positive: Myalgias, Pain (right arm - chronic) Skin: No Rash Neurologic: Positive: Weakness (right sided - chronic ), Dizziness, Focal Abnormalities (right sided weakness since stroke ), Paresthesia (right arm - chronic), Other (loss of consciousness ) Physical Exam Narrative GENERAL: Awake and alert obese female in no acute distress. SKIN: Warm and dry. No rashes. HEAD: Atraumatic. Normocephalic. EYES: Pupils equal and round. Extraocular eye movements intact. Conjunctiva injected. ENT: No nasal bleeding or discharge. Mucous membranes pink and moist. NECK: Trachea midline. Neck supple. CARDIOVASCULAR: Tachycardia, regular rhythm. No murmurs appreciated. RESPIRATORY: No accessory muscle use. Poor air movement. No wheezing. GASTROINTESTINAL: Abdomen soft, non-tender, nondistended. MUSCULOSKELETAL: No obvious deformities. No edema. NEUROLOGICAL: Awake and alert. No obvious cranial nerve deficits. Motor grossly within normal limits. Normal speech. Right sided weakness. PSYCHIATRIC: Appropriate mood and affect; insight and judgment normal. Data Data Last Documented VS Vital Signs Date Time Temp Pulse Resp B/P Pulse Ox O2 Delivery O2 Flow Rate FiO2 09/18/16 00:46 18 99 Room Air 09/17/16 22:30 99.9 104 178/114 Orders Electrocardiogram (09/18/16 00:05) Basic Metabolic Panel (Bmp) (09/18/16 00:05) Ckmb (Isoenzyme) Profile (09/18/16 00:05) Complete Blood Count With Diff (09/18/16 00:05) Magnesium (Mg) (09/18/16 00:05) Prothrombin Time / Inr (Pt) (09/18/16 00:05) Act Partial Throm Time (Ptt) (09/18/16 00:05) Troponin I (09/18/16 00:05) Chest, Single Ap (09/18/16 00:05) Ecg Monitoring (09/18/16 00:05) Iv Access Insert/Monitor (09/18/16 00:05) Oximetry (09/18/16 00:05) Aspirin Chew (Aspirin Chew) (09/18/16 00:15) Sodium Chloride 0.9% Flush (Ns Flush) (09/18/16 00:15) Ed Poc Ultrasound (09/18/16 00:) Ct Brain W/O Iv Contrast(Rout) (09/18/16 00:23) [facility] Medical Decision Making Medical Screen Exam Complete: Yes Emergency Medical Condition: Yes Differential Diagnosis Differentials include MT, pneumonia, syncope, viral URI, gastroenteritis. Narrative Course Patient presents with a variety of symptoms including chest pain, fatigue, vomiting and a recent fall that occurred this morning. She had a stroke earlier this year and also has HTN, diabetes and high cholesterol. Patient reports he has been off her medications for about 1 month. CXR, EKG, head CT, and labs were ordered. Her care is being turned over to the Edwardo Alvarenga PA-C pending her workup. Diagnosis Primary Impression: Fever Qualified Code: R50.9 - Fever, unspecified fever cause Additional Impressions: Headache Qualified Code: R51 - Acute nonintractable headache, unspecified headache type Fatigue Qualified Code: R53.83 - Fatigue, unspecified type Chest pain Qualified Code: R07.1 - Chest pain on breathing Condition: Stable Carrol Davenport MD Sep 18, 2016 00:37
--- NOTE | 2016-09-18 00:55 | RADRPT ---
EXAM DATE/TIME: 09/18/2016 00:30 [facility] COMPARISON: CHEST SINGLE AP, July 30, 2016, 19:20. INDICATIONS : Congestion. MEDICAL HISTORY : Hypertension. Diabetes mellitus type II. Stroke. SURGICAL HISTORY : None. ENCOUNTER: Initial ACUITY: 1 day PAIN SCORE: 0/10 LOCATION: Bilateral chest FINDINGS: A single view of the chest demonstrates the lungs to be symmetrically aerated without evidence of mas s, infiltrate or effusion. The cardiomediastinal contours are unremarkable. Osseous structures are intact. CONCLUSION: No evidence of acute cardiopulmonary disease. Vasu Lr MD on September 18, 2016 at 0:53 Board Certified Radiologist. This report was verified electronically.
[2016-09-18 01:00] LABS: AUTOMATED NEUTROPHIL # 4.9 TH/MM3 (1.8-7.7); BASOPHIL % 0.4 % (0.0-2.0); EOSINOPHIL # 0.1 TH/MM3 (0-0.4); HEMATOCRIT 40.7 % (35.0-46.0); HEMO FLAGS DIFF FINAL; LYMPH % 23.9 % (9.0-44.0); LYMPHOCYTE # 1.8 TH/MM3 (1.0-4.8); MEAN CELL VOLUME 88.9 FL (80.0-100.0); MEAN CORPUSCULAR HEMOGLOBIN 28.9 PG (27.0-34.0); MEAN CORPUSCULAR HGB CONC 32.5 % (32.0-36.0); MONO % 10.3 % (0.0-8.0); NEUT % 64.4 % (16.0-70.0); PLATELET COUNT 260 TH/MM3 (150-450); RED BLOOD COUNT 4.58 MIL/MM3 (4.00-5.30); RED CELL DISTRIBUTION WIDTH 13.9 % (11.6-17.2); WHITE BLOOD COUNT 7.7 TH/MM3 (4.0-11.0)
[2016-09-18] MEDS ORDERED: ACETAMINOPHEN 325 MG TAB PO ONE (01:00)
--- NOTE | 2016-09-18 01:08 | RADRPT ---
EXAM DATE/TIME: 09/18/2016 00:56 [facility] COMPARISON: CT BRAIN W/O CONTRAST, July 01, 2016, 19:15. INDICATIONS : Headaches with syncope. RADIATION DOSE: 48.5 CTDIvol (mGy) MEDICAL HISTORY : Cardiovascular disease. Hypertension. SURGICAL HISTORY : None. ENCOUNTER: Initial ACUITY: 1 day PAIN SCALE: 6/10 LOCATION: cranial TECHNIQUE: Multiple contiguous axial images were obtained of the head. Using automated exposure control and adj ustment of the mA and/or kV according to patient size, radiation dose was kept as low as reasonably a chievable to obtain optimal diagnostic quality images. DICOM format image data is available electro nically for review and comparison. FINDINGS: CEREBRUM: The ventricles are normal for age. No evidence of midline shift, mass lesion, hemorrhage or acute in farction. No extra-axial fluid collections are seen. POSTERIOR FOSSA: The cerebellum and brainstem are intact. The 4th ventricle is midline. The cerebellopontine angle i s unremarkable. EXTRACRANIAL: The visualized portion of the orbits is intact. SKULL: The calvaria is intact. No evidence of skull fracture. CONCLUSION: No acute intracranial abnormality. Vsau Lr MD on September 18, 2016 at 1:06 Board Certified Radiologist. This report was verified electronically.
[2016-09-18 01:18] LABS: APTT (PATIENT) 29.2 SEC (24.3-30.1); INTERNATIONAL NORMALIZED RATIO 0.9 RATIO; PROTHROMBIN TIME - PATIENT 10.2 SEC (9.8-11.6)
[2016-09-18 01:29] LABS: ANION GAP 5 MEQ/L (5-15); BLOOD UREA NITROGEN 3 MG/DL (7-18); CHLORIDE 104 MEQ/L (98-107); GLOMERULAR FILTRATION RATE 92 ML/MIN (>89); POTASSIUM 3.6 MEQ/L (3.5-5.1); SODIUM (NA) 141 MEQ/L (136-145)
[2016-09-18] MEDS ORDERED: IBUPROFEN 800 MG TAB PO ONE (01:30)
[2016-09-18 01:40] LABS: CREATINE KINASE 136 U/L (26-192)
[2016-09-18 01:53] LABS: CKMB LESS THAN 0.5 NG/ML (0.5-3.6)
[2016-09-18 02:09] LABS: BLOOD, URINE TRACE (NEG); GLUCOSE,URINE NEG (NEG); KETONE, URINE NEG (NEG); MUCUS URINE MANY /lpf (OCC); NITRITE,URINE NEG (NEG); PH, URINE 5.5 (5.0-8.5); SQUAMOUS EPITHELIAL CELL URINE 1 /hpf (0-5); URINE COLOR YELLOW (YELLW/STRAW)
[2016-09-18 02:11] LABS: COMMENT (UR) CULT NOT INDICATED; CULTURE IF INDICATED CULT NOT INDICATED
[2016-09-18] MEDS ORDERED: SODIUM CHLOR 0.9% 1000 ML INJ 1,000 ML IV ONE (02:15)
[2016-09-18] MEDS ORDERED: OSELTAMIVIR PHOSPHATE 75 MG CAP PO ONE (02:15)
[2016-09-18] MEDS ORDERED: DEXTROSE 50% IN WATER 50 ML VIAL(D50) IV PRN (02:30)
[2016-09-18] MEDS ORDERED: GLUCAGON 1 MG/ML VIAL OTHER PRN (02:30)
[2016-09-18] MEDS ORDERED: SODIUM CHLORIDE 0.9% FLUSH 10 ML FLUSH IV FLUSH PRN (02:30)
[2016-09-18] MEDS ORDERED: NALOXONE HCL 0.4 MG/ML AMP IV PRN (02:30)
--- NOTE | 2016-09-18 02:48 | PD ---
Physical Exam Date Seen by Provider: Sep 18, 2016 Time Seen by Provider: 02:45 Data Data Last Documented VS Vital Signs Date Time Temp Pulse Resp B/P Pulse Ox O2 Delivery O2 Flow Rate FiO2 09/18/16 02:01 99.5 100 16 150/67 99 Room Air Orders Electrocardiogram (09/18/16 00:05) Basic Metabolic Panel (Bmp) (09/18/16 00:05) Ckmb (Isoenzyme) Profile (09/18/16 00:05) Complete Blood Count With Diff (09/18/16 00:05) Magnesium (Mg) (09/18/16 00:05) Prothrombin Time / Inr (Pt) (09/18/16 00:05) Act Partial Throm Time (Ptt) (09/18/16 00:05) Troponin I (09/18/16 00:05) Chest, Single Ap (09/18/16 00:05) Ecg Monitoring (09/18/16 00:05) Iv Access Insert/Monitor (09/18/16 00:05) Oximetry (09/18/16 00:05) Aspirin Chew (Aspirin Chew) (09/18/16 00:15) Sodium Chloride 0.9% Flush (Ns Flush) (09/18/16 00:15) Ed Poc Ultrasound (09/18/16 00:05) Ct Brain W/O Iv Contrast(Rout) (09/18/16 00:23) Acetaminophen (Tylenol) (09/18/16 01:00) Influenzae A/B Antigen (09/18/16 00:50) Urinalysis - C+S If Indicated (09/18/16 01:24) Cath For Specimen (09/18/16 01:24) Lactic Acid (09/18/16 01:27) Ibuprofen (Motrin) (09/18/16 01:30) C-Reactive Protein (Crp) (09/18/16 00:45) CKMB (09/18/16 00:45) CKMB% (09/18/16 00:45) Oseltamivir (Tamiflu) (09/18/16 02:15) Sodium Chlor 0.9% 1000 Ml Inj (Ns 1000 M (09/18/16 02:15) Place In Observation (09/18/16 ) Vital Signs (Adult) Q4H (09/18/16 02:20) Activity Oob With Assistance (09/18/16 02:20) Recordist Chief / Telemetry .CONTINUOUS (09/18/16 02:20) Diet Heart Healthy (09/18/16 Breakfast) Sodium Chloride 0.9% Flush (Ns Flush) (09/18/16 02:30) Sodium Chloride 0.9% Flush (Ns Flush) (09/18/16 09:00) Basic Metabolic Panel (Bmp) (09/19/16 06:00) Complete Blood Count With Diff (09/19/16 06:00) Creatine Kinase (Cpk) (09/18/16 06:45) Creatine Kinase (Cpk) (09/18/16 12:45) Troponin I (09/18/16 06:45) Troponin I (09/18/16 12:45) Electrocardiogram (09/18/16 06:45) Electrocardiogram (09/18/16 12:45) Case Management Consult (09/18/16 02:20) Naloxone Inj (Narcan Inj) (09/18/16 02:30) Eeg Study (09/18/16 ) Bedside Glucose SIDRA.AC&HS (09/18/16 02:20) Blood Glucose Goal (Criteria) (09/18/16 02:20) Hypoglycemia 70 Mg/Dl Or < (09/18/16 02:20) Notify Dr: Other (09/18/16 02:20) Dextrose 50% In Ania (Vial) Inj (D50w (Vi (09/18/16 02:30) Glucagon Inj (Glucagon Inj) (09/18/16 02:30) Oseltamivir (Tamiflu) (09/18/16 14:00) Admit Order (Ed Use Only) (09/18/16 02:25) Labs Laboratory Tests Test 09/18/16 09/18/16 00:45 01:40 White Blood Count 7.7 TH/MM3 Red Blood Count 4.58 MIL/MM3 Hemoglobin 13.3 GM/DL Hematocrit 40.7 % Mean Corpuscular Volume 88.9 FL Mean Corpuscular Hemoglobin 28.9 PG Mean Corpuscular Hemoglobin 32.5 % Concent Red Cell Distribution Width 13.9 % Platelet Count 260 TH/MM3 Mean Platelet Volume 9.6 FL Neutrophils (%) (Auto) 64.4 % Lymphocytes (%) (Auto) 23.9 % Monocytes (%) (Auto) 10.3 % Eosinophils (%) (Auto) 1.0 % Basophils (%) (Auto) 0.4 % Neutrophils # (Auto) 4.9 TH/MM3 Lymphocytes # (Auto) 1.8 TH/MM3 Monocytes # (Auto) 0.8 TH/MM3 Eosinophils # (Auto) 0.1 TH/MM3 Basophils # (Auto) 0.0 TH/MM3 CBC Comment DIFF FINAL Differential Comment Prothrombin Time 10.2 SEC Prothromb Time International 0.9 RATIO Ratio Activated Partial 29.2 SEC Thromboplast Time Sodium Level 141 MEQ/L Potassium Level 3.6 MEQ/L Chloride Level 104 MEQ/L Carbon Dioxide Level 32.0 MEQ/L Anion Gap 5 MEQ/L Blood Urea Nitrogen 3 MG/DL Creatinine 0.84 MG/DL Estimat Glomerular Filtration 92 ML/MIN Rate Random Glucose 102 MG/DL Calcium Level 8.7 MG/DL Magnesium Level 2.0 MG/DL Total Creatine Kinase 136 U/L Creatine Kinase MB LESS THAN 0.5 NG/ML Troponin I LESS THAN 0.02 NG/ML C-Reactive Protein 1.01 MG/DL Urine Color YELLOW Urine Turbidity HAZY Urine pH 5.5 Urine Specific [place] 1.026 Urine Protein TRACE mg/dL Urine Glucose (UA) NEG mg/dL Urine Ketones NEG mg/dL Urine Occult Blood TRACE Urine Nitrite NEG Urine Bilirubin NEG Urine Urobilinogen 2.0 MG/DL Urine Leukocyte Esterase TRACE Urine RBC 2 /hpf Urine WBC 3 /hpf Urine Squamous Epithelial 1 /hpf Cells Urine Mucus MANY /lpf Microscopic Urinalysis Comment CULT NOT INDICATED Lactic Acid Level 1.5 mmol/L [facility] Medical Record Reviewed: Yes Supervised Visit with MITCHELL: Yes Interpretation(s) Last [address] 09/18/16 0023 Signed Impressions: Service Date/Time: Sunday, September 18, 2016 00:56 - CONCLUSION: No acute intracranial abnormality. Vasu Lr MD Chest X-Ray 09/18/16 0005 Signed Impressions: Service Date/Time: Sunday, September 18, 2016 00:30 - CONCLUSION: No evidence of acute cardiopulmonary disease. Vasu Lr MD Laboratory Tests Test 09/18/16 09/18/16 00:45 01:40 White Blood Count 7.7 TH/MM3 Red Blood Count 4.58 MIL/MM3 Hemoglobin 13.3 GM/DL Hematocrit 40.7 % Mean Corpuscular Volume 88.9 FL Mean Corpuscular Hemoglobin 28.9 PG Mean Corpuscular Hemoglobin 32.5 % Concent Red Cell Distribution Width 13.9 % Platelet Count 260 TH/MM3 Mean Platelet Volume 9.6 FL Neutrophils (%) (Auto) 64.4 % Lymphocytes (%) (Auto) 23.9 % Monocytes (%) (Auto) 10.3 % Eosinophils (%) (Auto) 1.0 % Basophils (%) (Auto) 0.4 % Neutrophils # (Auto) 4.9 TH/MM3 Lymphocytes # (Auto) 1.8 TH/MM3 Monocytes # (Auto) 0.8 TH/MM3 Eosinophils # (Auto) 0.1 TH/MM3 Basophils # (Auto) 0.0 TH/MM3 CBC Comment DIFF FINAL Differential Comment Prothrombin Time 10.2 SEC Prothromb Time International 0.9 RATIO Ratio Activated Partial 29.2 SEC Thromboplast Time Sodium Level 141 MEQ/L Potassium Level 3.6 MEQ/L Chloride Level 104 MEQ/L Carbon Dioxide Level 32.0 MEQ/L Anion Gap 5 MEQ/L Blood Urea Nitrogen 3 MG/DL Creatinine 0.84 MG/DL Estimat Glomerular Filtration 92 ML/MIN Rate Random Glucose 102 MG/DL Calcium Level 8.7 MG/DL Magnesium Level 2.0 MG/DL Total Creatine Kinase 136 U/L Creatine Kinase MB LESS THAN 0.5 NG/ML Troponin I LESS THAN 0.02 NG/ML C-Reactive Protein 1.01 MG/DL Urine Color YELLOW Urine Turbidity HAZY Urine pH 5.5 Urine Specific [place] 1.026 Urine Protein TRACE mg/dL Urine Glucose (UA) NEG mg/dL Urine Ketones NEG mg/dL Urine Occult Blood TRACE Urine Nitrite NEG Urine Bilirubin NEG Urine Urobilinogen 2.0 MG/DL Urine Leukocyte Esterase TRACE Urine RBC 2 /hpf Urine WBC 3 /hpf Urine Squamous Epithelial 1 /hpf Cells Urine Mucus MANY /lpf Microscopic Urinalysis Comment CULT NOT INDICATED Lactic Acid Level 1.5 mmol/L Last [address] 09/18/16 0023 Signed Impressions: Service Date/Time: Sunday, September 18, 2016 00:56 - CONCLUSION: No acute intracranial abnormality. Vasu Lr MD Chest X-Ray 09/18/16 0005 Signed Impressions: Service Date/Time: Sunday, September 18, 2016 00:30 - CONCLUSION: No evidence of acute cardiopulmonary disease. Vasu Lr MD Influenza: Positive for influenza B Differential Diagnosis MDM: High Differential diagnoses: Pneumonia, bronchitis, URI, asthma, RAD, influenza, acute coronary syndrome, pleuritic chest wall pain, Narrative Course IV access is obtained. Patient's laboratory tests sent for analysis. This includes CBC, chemistry, lactic, CRP, influenza, and catheter urine. Patient's given a liter bolus of normal saline and Tylenol. Patient's influenza is positive. She is given Tamiflu 75 mg by mouth. I discussed the case with Dr. Moon who has agreed to admit the patient. This is a patient with fever, influenza, and chest pain. The patient has a possible altered level of consciousness or syncopal event at home. Etiology is not completely clear. The patient will be admitted for further cardiac monitoring as well as repeat enzymes. She'll be treated for her flu. Case management for be involved in her case to assist with her disposition. Diagnosis Primary Impression: Fever Qualified Code: R50.9 - Fever, unspecified fever cause Additional Impressions: Fatigue Qualified Code: R53.83 - Fatigue, unspecified type Headache Qualified Code: R51 - Acute nonintractable headache, unspecified headache type Chest pain Qualified Code: R07.1 - Chest pain on breathing Influenza B Condition: Stable Diego Doll Sep 18, 2016 02:48
[2016-09-18 07:21] LABS: CREATINE KINASE 183 U/L (26-192)
--- NOTE | 2016-09-18 08:42 | HHI.HP ---
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 patient denies any neck pain blood sugars were good. Yesterday patient started coughing bringing up whitish phlegm every now and then associated with low-grade fever and chilly sensation. Persistent cough associated with chest discomfort. Came to the ER because of increasing aches, decreased by mouth appetite and on evaluation was noted to be tachycardic low- grade fever with positive influenza B. Patient admitted . On further evaluation patient admitted that she ran out of her BP and DM medications for 1 month now. She just moved down here from [place] and trying to set up with a primary care physician. At bedside feels hungry denies any nausea vomiting urinary symptoms or diarrhea. She still continues to smoke half pack per day. Rare alcohol use admits to previous cocaine use. Review of Systems Constitutional: COMPLAINS OF: Weight gain Endocrine: DENIES: Abnorml menstrual pattern, Heat/cold intolerance, Polydipsia , Polyuria, Polyphagia Eyes: DENIES: Blurred vision, Diplopia, Eye inflammation, Eye pain, Vision loss , Photosensitivity, Double Vision Ears, nose, mouth, throat: DENIES: Tinnitus, Hearing loss, Vertigo, Nasal discharge, Oral lesions, Throat pain, Hoarseness, Ear Pain, Running Nose, Epistaxis, Sinus Pain, Toothache, Odynophagia Respiratory: COMPLAINS OF: Cough Cardiovascular: COMPLAINS OF: Chest pain (associated with cough), DENIES: Palpitations, Syncope, Dyspnea on Exertion, PND, Lower Extremity Edema, Orthopnea, Claudication Gastrointestinal: DENIES: Abdominal pain, Black stools, Bloody stools, Constipation, Diarrhea, Nausea, Vomiting, Difficulty Swallowing, Anorexia Genitourinary: DENIES: Abnormal vaginal bleeding, Dysmenorrhea, Dyspareunia, Sexual dysfunction, Urinary frequency, Urinary incontinence, Urgency, Hematuria , Dysuria, Nocturia, Vaginal discharge Musculoskeletal: COMPLAINS OF: Muscle aches Integumentary: DENIES: Abnormal pigmentation, Pruritus, Rash, Nail changes, Breast masses, Breast skin changes, Nipple discharge Hematologic/lymphatic: DENIES: Bruising, Lymphadenopathy Immunologic/allergic: DENIES: Eczema, Urticaria Neurologic: COMPLAINS OF: Headache Psychiatric: COMPLAINS OF: Anxiety (positive history), Depression Past Family Social History Past Medical History Hypertension Diabetes type 2 Depression/anxiety History of hyperlipidemia History of CVA in March 2016 admitted in [place] with residual some baseline expressive aphasia and mild very mild right sided weakness. Past Surgical History Ovarian cyst removal patient not sure if it's right or left per patient benign Reported Medications Lisinopril 10 mg daily Zoloft 100 mg daily Seroquel daily Clonazepam 10.5 mg daily Albuterol 2 puffs 4 times a day Metformin 500 twice a Amlodipine 10 mg daily Atorvastatin More week Aspirin Allergies: Coded Allergies: No Known Allergies (Unverified , 09/17/16) Family History Positive family history of diabetes and hypertension Social History Smokes about half pack per day patient states she decided to quit yesterday Admits to previous cocaine/marijuana use Very rare alcohol use Physical Exam Vital Signs Vital Signs Date Time Temp Pulse Resp B/P Pulse Ox O2 Delivery O2 Flow Rate FiO2 09/18/16 07:26 115 16 140/83 99 Room Air 09/18/16 05:56 99.3 103 20 144/93 97 09/18/16 02:01 99.5 100 16 150/67 99 Room Air 09/18/16 00:49 100.7 99 18 166/95 99 09/18/16 00:46 18 99 Room Air 09/17/16 22:30 99.9 104 16 178/114 99 Room Air Physical Exam GENERAL: Morbidly obese SKIN: No rashes, ecchymoses or lesions. Cool and dry. HEAD: Atraumatic. Normocephalic. No temporal or scalp tenderness. EYES: Pupils equal round and reactive. Extraocular motions intact. No scleral icterus. No injection or drainage. ENT: Nose without bleeding, throat with mild erythema, no tonsillar hypertrophy or exudate. Uvula midline. Airway patent. NECK: Trachea midline. No JVD or lymphadenopathy. Supple, nontender, no meningeal signs. CARDIOVASCULAR: Tachycardic, regular rhythm without murmurs, gallops, or rubs. RESPIRATORY: Clear to auscultation. Breath sounds equal bilaterally. No wheezes , rales, or rhonchi. GASTROINTESTINAL: Abdomen flabby soft, non-tender, nondistended. . No guarding. MUSCULOSKELETAL: Extremities without clubbing, cyanosis, or edema. No joint tenderness, effusion, or edema noted. No calf tenderness. Negative Homans sign bilaterally. NEUROLOGICAL: Awake and alert. Cranial nerves II through XII intact. Mild expressive aphasia Motor and sensory grossly within normal limits. Motor grossly 5 over 5 in all extremities gait slow but steady Laboratory Laboratory Tests Test 09/18/16 09/18/16 09/18/16 00:45 01:40 06:15 White Blood Count 7.7 Red Blood Count 4.58 Hemoglobin 13.3 Hematocrit 40.7 Mean Corpuscular Volume 88.9 Mean Corpuscular Hemoglobin 28.9 Mean Corpuscular Hemoglobin 32.5 Concent Red Cell Distribution Width 13.9 Platelet Count 260 Mean Platelet Volume 9.6 Neutrophils (%) (Auto) 64.4 Lymphocytes (%) (Auto) 23.9 Monocytes (%) (Auto) 10.3 Eosinophils (%) (Auto) 1.0 Basophils (%) (Auto) 0.4 Neutrophils # (Auto) 4.9 Lymphocytes # (Auto) 1.8 Monocytes # (Auto) 0.8 Eosinophils # (Auto) 0.1 Basophils # (Auto) 0.0 CBC Comment DIFF FINAL Differential Comment Prothrombin Time 10.2 Prothromb Time International 0.9 Ratio Activated Partial 29.2 Thromboplast Time Sodium Level 141 Potassium Level 3.6 Chloride Level 104 Carbon Dioxide Level 32.0 Anion Gap 5 Blood Urea Nitrogen 3 Creatinine 0.84 Estimat Glomerular Filtration 92 Rate Random Glucose 102 Calcium Level 8.7 Magnesium Level 2.0 Total Creatine Kinase 136 183 Creatine Kinase MB LESS THAN 0.5 Troponin I LESS THAN 0.02 LESS THAN 0.02 C-Reactive Protein 1.01 Urine Color YELLOW Urine Turbidity HAZY Urine pH 5.5 Urine Specific [place] 1.026 Urine Protein TRACE Urine Glucose (UA) NEG Urine Ketones NEG Urine Occult Blood TRACE Urine Nitrite NEG Urine Bilirubin NEG Urine Urobilinogen 2.0 Urine Leukocyte Esterase TRACE Urine RBC 2 Urine WBC 3 Urine Squamous Epithelial 1 Cells Urine Mucus MANY Microscopic Urinalysis Comment CULT NOT INDICATED Lactic Acid Level 1.5 Date/Time Procedure Status Source Growth 09/18/16 01:15 Influenza Types A,B Antigen ([place]) - Final Complete Nasal Washing Positive For Flu B Antigen Result Diagram: 09/18/16 0045 09/18/16 0045 Imaging Last Impressions Head CT 09/18/16 0023 Signed Impressions: Service Date/Time: Sunday, September 18, 2016 00:56 - CONCLUSION: No acute intracranial abnormality. Vasu Lr MD Chest X-Ray 09/18/16 0005 Signed Impressions: Service Date/Time: Sunday, September 18, 2016 00:30 - CONCLUSION: No evidence of acute cardiopulmonary disease. Vasu Lr MD Septic Shock Reassessment Heart: Regular rate and rhythm Lungs: Clear Skin: Warm Assessment and Plan Assessment and Plan 35-year-old female presenting with cough generalized flulike symptoms fever or chills Sepsis SIRS secondary to Influenza B infection Patient started on Tamiflu 75 mg by mouth twice a day Patient with very poor by mouth appetite clinically dry will start patient on gentle hydration CXR reviewed- no acute infiltrates check blood cultures Chest pains secondary to cough. Troponins negative twelve-lead EKG unremarkable. History of hypertension, uncontrolled with history of cardiomyopathy EF of 40% on review of old records. Continue on meds-lisinopril, amlodipine, aspirin. clonidine prn. gentle hydration- Hyperlipidemia continue on statins History of anxiety/depression Continue on Seroquel and clonazepam History of hyperreactive airway disease in remission Continue albuterol MDI 2 puffs every 6 Diabetes type 2 monitor blood sugars. FF BS. check A1C. History of CVA with mild expressive aphasia and very mild left-sided weakness. Continue aspirin. Encourage ambulation Obesity- BMI 45. Advised Lovenox for DVT prophylaxis Discussed with patient- admission Discussed Condition With Patient Tye Bae MD Sep 18, 2016 08:42
[2016-09-18] MEDS: SODIUM CHLORIDE 0.9% FLUSH 10 ML FLUSH IV FLUSH SCH ×2 (09:00→20:47)
[2016-09-18] MEDS ORDERED: SODIUM CHLOR 0.9% 1000 ML INJ 1,000 ML IV SCH (09:00)
--- NOTE | 2016-09-18 09:58 | EKG ---
Date Performed: 09/18/2016 Time Performed: 06:25:00 PTAGE: 35 years EKG: SINUS TACHYCARDIA LOW QRS VOLTAGE IN PRECORDIAL LEADS ABNORMAL RHYTHM ECG Compared to prior tracing no significant change DOCTOR: Wilmer Michael Interpretating Date/Time 09/18/2016 09:57:47
[2016-09-18] MEDS: LISINOPRIL 10 MG TAB PO SCH (10:00)
--- NOTE | 2016-09-18 10:57 | EKG ---
Date Performed: 09/18/2016 Time Performed: 00:34:29 PTAGE: 35 years EKG: SINUS TACHYCARDIA ABNORMAL RHYTHM ECG PREVIOUS TRACING : 07/30/2016 19.29 Compared to prior tracing no significant change DOCTOR: Wilmer Michael Interpretating Date/Time 09/18/2016 10:56:04
[2016-09-18] MEDS: clonazePAM 0.5 MG TAB PO SCH (11:25)
[2016-09-18] MEDS: SERTRALINE HCL 100 MG TAB PO SCH (11:26)
[2016-09-18] MEDS: CHLORPHENIR/HYDROCOD LIQUID 8 MG/10 MG/5 ML CUP PO SCH ×3 (11:26→20:46)
[2016-09-18] MEDS: ALBUTEROL SULFATE 90 MCG/ACT HFA 18 GM INHALER INH SCH ×2 (12:00→18:00)
[2016-09-18 13:38] LABS: AMPHETAMINE, URINE NEG (NEG); BARBITURATES, URINE NEG (NEG); COCAINE, URINE NEG (NEG)
[2016-09-18] MEDS: ACETAMINOPHEN 325 MG TAB PO PRN ×2 (13:58→20:46)
[2016-09-18] MEDS: OSELTAMIVIR PHOSPHATE 75 MG CAP PO SCH ×2 (15:31→20:46)
[2016-09-18 16:36] LABS: CREATINE KINASE 244 U/L (26-192)
[2016-09-18 16:48] LABS: CKMB LESS THAN 0.5 NG/ML (0.5-3.6)
[2016-09-18] MEDS ORDERED: cloNIDine HCL 0.1 MG TAB PO PRN (18:30)
[2016-09-18 19:38] LABS: ALT (GPT) 30 U/L (10-53); AST (GOT) 21 U/L (15-37); HEMOGLOBIN A1a 1.2 %; HEMOGLOBIN A1b 2.1 %; HEMOGLOBIN Ao 83.8 %; HEMOGLOBIN P3 3.6 %
[2016-09-18 19:40] LABS: ALKALINE PHOSPHATASE 103 U/L (45-117); INDIRECT BILIRUBIN 0.2 MG/DL (0.0-0.8); TOTAL BILIRUBIN ADULT 0.3 MG/DL (0.2-1.0)
--- NOTE | 2016-09-18 19:46 | MG ---
cc: BRAD CONTRERAS M.D. Lab No: Date: 09/18/2016 Age: Sex: F Race: ELECTROENCEPHALOGRAM NUMBER [id number] INTRODUCTION Hyperventilation not performed. A 35-year-old woman. Hypertension. Anxiety. Expressive aphasia. Stroke. Asthma. MEDICATIONS 1. Motrin. 2. Aspirin. DESCRIPTION A 9-10 Hz 70 microvolts diffuse rhythm is seen. Some large amplitude theta and delta slowing as the patient is in stage II sleep to start the recording. Hyperventilation not performed. Photic stimulation is performed without significant posterior driving. No epileptiform or seizure activity is seen. An 8 Hz 60 microvolt diffuse rhythm and posterior rhythm is at times noted. IMPRESSION Normal stage II sleep EEG. No evidence for a focal or diffuse abnormality. MD LUIS Humphrey/KK /4:51 PM /7:43 PM
[2016-09-18] MEDS: ATORVASTATIN 40 MG TAB PO SCH (20:47)
[2016-09-18] MEDS: QUEtiapine FUMARATE 300 MG TAB PO SCH (20:47)
[2016-09-18] MEDS: ENOXAPARIN SODIUM 40 MG/0.4 ML SYRINGE SQ SCH (21:34)
[2016-09-18] MEDS ORDERED: IOHEXOL 350 MG/ML 10 ML VIAL (for RAD DIAG) IV ONE (23:55)
[2016-09-19] VITALS (15 sets, daily range): BP systolic 90–113; BP diastolic 45–68; PULSE 75–110; RESP 16–20; TEMP 98.7–99.7; O2SAT 91–100
--- NOTE | 2016-09-19 00:17 | RADRPT ---
EXAM DATE/TIME: 09/18/2016 23:49 [place] COMPARISON: No previous studies available for comparison. INDICATIONS : Chest pain and cough. Evaluate for embolism. IV CONTRAST: 95 cc Omnipaque 350 (iohexol) IV RADIATION DOSE: 23.38 CTDIvol (mGy) MEDICAL HISTORY : Hypertension. Myocardial infarction. Congestive heart failure.Diabetes. CVA. SURGICAL HISTORY : None. ENCOUNTER: Initial ACUITY: 2 days PAIN SCALE: 6/10 LOCATION: Bilateral chest TECHNIQUE: Volumetric scanning of the chest was performed using a pulmonary embolism protocol MIP images were re constructed. Using automated exposure control and adjustment of the mA and/or kV according to patien t size, radiation dose was kept as low as reasonably achievable to obtain optimal diagnostic quality images. DICOM format image data is available electronically for review and comparison. Follow-up recommendations for incidentally detected pulmonary nodules are based at a minimum on nodul e size and patient risk factors according to Fleischner Society Guidelines. FINDINGS: PULMONARY ARTERIES: Moderate opacification of the pulmonary arteries. Moderate streak artifact noted. No gross evidence o f pulmonary embolus. Diffuse prominence of the central pulmonary vasculature. LUNGS: Mild bilateral groundglass opacity in the lungs with perihilar and lower lung zone predominance. PLEURAE: There is no pleural thickening or pleural effusion. MEDIASTINUM: Moderate diffuse cardiomegaly. No enlarged lymph nodes. MUSCULOSKELETAL: Within normal limits for patient age. MISCELLANEOUS: The visualized upper abdominal organs demonstrate no acute abnormality. CONCLUSION: 1. Streak artifact decreases the sensitivity for pulmonary embolus on this study but no pulmonary emb olus identified. 2. Cardiomegaly, central pulmonary vasculature prominence and mild bilateral groundglass pulmonary op acity suggesting pulmonary vascular congestion/mild pulmonary edema. Jeff Floyd MD on September 19, 2016 at 0:10 Board Certified Radiologist. This report was verified electronically.
[2016-09-19] MEDS: ALBUTEROL SULFATE 90 MCG/ACT HFA 18 GM INHALER INH SCH ×4 (01:28→17:58)
[2016-09-19] MEDS: SODIUM CHLORIDE 0.9% FLUSH 10 ML FLUSH IV FLUSH SCH ×2 (10:10→22:17)
[2016-09-19] MEDS: clonazePAM 0.5 MG TAB PO SCH (10:10)
[2016-09-19] MEDS: CHLORPHENIR/HYDROCOD LIQUID 8 MG/10 MG/5 ML CUP PO SCH ×2 (10:10→21:56)
[2016-09-19] MEDS: ASPIRIN EC 81 MG TABEC PO SCH (10:10)
[2016-09-19] MEDS: LISINOPRIL 10 MG TAB PO SCH (10:11)
[2016-09-19] MEDS: SERTRALINE HCL 100 MG TAB PO SCH (10:11)
[2016-09-19] MEDS: OSELTAMIVIR PHOSPHATE 75 MG CAP PO SCH ×2 (10:11→21:56)
[2016-09-19] MEDS: ACETAMINOPHEN 325 MG TAB PO PRN (10:25)
--- NOTE | 2016-09-19 11:22 | HHI.PR ---
Subjective Remarks last night with fever and chills now she is coughing up light yellowish sputum also having diarrhea Objective Vitals Vital Signs Date Time Temp Pulse Resp B/P Pulse Ox O2 Delivery O2 Flow Rate FiO2 09/19/16 09:04 95 09/19/16 08:55 99.4 100 16 110/64 91 09/19/16 05:21 98.7 99 19 113/59 96 09/19/16 04:00 96 09/19/16 00:16 98.8 87 20 90/45 100 09/19/16 00:00 96 09/18/16 21:04 100.6 20 182/72 93 09/18/16 20:00 138 09/18/16 16:37 99.8 123 15 184/96 95 09/18/16 14:58 20 09/18/16 13:47 102.7 125 20 165/95 96 Result Diagram: 09/18/16 0045 09/18/16 0045 Imaging Last Impressions Head CT 09/18/16 0023 Signed Impressions: Service Date/Time: Sunday, September 18, 2016 00:56 - CONCLUSION: No acute intracranial abnormality. Vasu Lr MD Chest X-Ray 09/18/16 0005 Signed Impressions: Service Date/Time: Sunday, September 18, 2016 00:30 - CONCLUSION: No evidence of acute cardiopulmonary disease. Vasu Lr MD CT Angiography 09/18/16 0000 Signed Impressions: Service Date/Time: Sunday, September 18, 2016 23:49 - CONCLUSION: 1. Streak artifact decreases the sensitivity for pulmonary embolus on this study but no pulmonary embolus identified. 2. Cardiomegaly, central pulmonary vasculature prominence and mild bilateral groundglass pulmonary opacity suggesting pulmonary vascular congestion/mild pulmonary edema. Jeff Floyd MD Objective Remarks awake and alert, NAD anicteric dry oral mucosa, no nuchal rigidity no thrush no rales or wheezes regular rhythm HR 99 abdomen soft, flabby nontender extremities no edema neuro exam- non focal A/P Assessment and Plan 35-year-old female presenting with cough generalized flulike symptoms fever or chills, last night apparently had chills and tachycardia CTA done negative for PE, EEG negative for seizyre activity Sepsis SIRS secondary to Influenza B infection - T max 102 r/o superimprosed bacterial infection Patient started on Tamiflu 75 mg by mouth twice a day Patient with very poor by mouth appetite clinically dry will start patient on gentle hydration CXR reviewed- no acute infiltrates check blood cultures Check CBC now send sputum for gram stain C and s Chest pains secondary to cough. Troponins negative twelve-lead EKG unremarkable. / tylenol RTC History of hypertension, uncontrolled with history of cardiomyopathy EF of 40% on review of old records.- now with llow SBPs Continue on meds-lisinopril, amlodipine, aspirin. clonidine prn. gentle hydration- HOld amlodpine continue IVF Diarrhea- likely part of viral syndrom gentle hydration Hyperlipidemia continue on statins History of anxiety/depression Continue on Seroquel and clonazepam History of hyperreactive airway disease in remission Continue albuterol MDI 2 puffs every 6 Diabetes type 2 monitor blood sugars. FF BS. check A1C. Restart Metformin in am History of CVA with mild expressive aphasia and very mild left-sided weakness. Continue aspirin. Encourage ambulation Lovenox for DVT prophylaxis Discussed with patient- admission Tye Bae MD Sep 19, 2016 11:22
[2016-09-19 11:50] LABS: AUTOMATED NEUTROPHIL # 7.6 TH/MM3 (1.8-7.7); BASOPHIL % 0.1 % (0.0-2.0); HEMATOCRIT 38.9 % (35.0-46.0); HEMO FLAGS DIFF FINAL; LYMPH % 10.1 % (9.0-44.0); MEAN CORPUSCULAR HEMOGLOBIN 28.4 PG (27.0-34.0); MEAN CORPUSCULAR HGB CONC 31.9 % (32.0-36.0); MONO % 8.3 % (0.0-8.0); NEUT % 81.5 % (16.0-70.0); PLATELET COUNT 219 TH/MM3 (150-450); RED BLOOD COUNT 4.37 MIL/MM3 (4.00-5.30); RED CELL DISTRIBUTION WIDTH 13.9 % (11.6-17.2); WHITE BLOOD COUNT 9.4 TH/MM3 (4.0-11.0)
[2016-09-19] MEDS: ACETAMINOPHEN 325 MG TAB PO SCH ×3 (13:08→21:56)
[2016-09-19] MEDS: SODIUM CHLOR 0.9% 1000 ML INJ 1,000 ML IV SCH (13:08)
[2016-09-19 13:43] LABS: POTASSIUM 4.5 MEQ/L (3.5-5.1)
[2016-09-19 13:44] LABS: BICARBONATE 26.1 MEQ/L (21.0-32.0)
[2016-09-19] MEDS ORDERED: RESP: ALBUTEROL 2.5 MG/IPRATROPIUM 0.5 MG NEB (PRN) NEB (16:15)
[2016-09-19] MEDS: QUEtiapine FUMARATE 300 MG TAB PO SCH (21:56)
[2016-09-19] MEDS: ENOXAPARIN SODIUM 40 MG/0.4 ML SYRINGE SQ SCH (21:57)
[2016-09-19] MEDS: ATORVASTATIN 40 MG TAB PO SCH (22:07)
[2016-09-20] VITALS (11 sets, daily range): BP systolic 90–110; BP diastolic 52–74; PULSE 71–90; RESP 14–18; TEMP 98.5–99; O2SAT 95
[2016-09-20] MEDS: ACETAMINOPHEN 325 MG TAB PO SCH ×5 (01:18→16:00)
[2016-09-20] MEDS: ALBUTEROL SULFATE 90 MCG/ACT HFA 18 GM INHALER INH SCH ×4 (01:20→18:00)
[2016-09-20] MEDS: SODIUM CHLOR 0.9% 1000 ML INJ 1,000 ML IV SCH ×2 (01:38→16:06)
--- NOTE | 2016-09-20 08:13 | HHI.PR ---
Subjective Remarks minimal cough- minimal sputum- whitish no fever or chills, no headaches, no neck pain states has been up and ambulating no nausea or vomiting, no diarrhea Objective Vitals Vital Signs Date Time Temp Pulse Resp B/P Pulse Ox O2 Delivery O2 Flow Rate FiO2 09/20/16 07:22 98.9 78 14 110/57 95 09/20/16 04:00 72 09/20/16 03:27 98.6 82 18 102/56 95 09/20/16 00:01 99.0 84 18 100/60 95 09/20/16 00:00 90 09/19/16 20:00 84 09/19/16 19:04 98.7 87 19 94/55 95 09/19/16 16:37 93 21 09/19/16 16:00 83 09/19/16 15:31 99.1 75 16 102/68 95 09/19/16 13:25 80 09/19/16 11:00 99.7 93 16 100/68 95 09/19/16 09:04 95 09/19/16 08:55 99.4 100 16 110/64 91 I/O 09/19/16 09/19/16 09/19/16 09/20/16 09/20/16 09/20/16 07:00 15:00 23:00 07:00 15:00 23:00 Intake Total 1350 ml Balance 1350 ml Intake Oral 930 ml IV Total 420 ml # Voids 2 # Bowel Movements 1 Result Diagram: 09/19/16 1055 09/19/16 1055 Imaging Last Impressions Head CT 09/18/16 0023 Signed Impressions: Service Date/Time: Sunday, September 18, 2016 00:56 - CONCLUSION: No acute intracranial abnormality. Vasu Lr MD Chest X-Ray 09/18/16 0005 Signed Impressions: Service Date/Time: Sunday, September 18, 2016 00:30 - CONCLUSION: No evidence of acute cardiopulmonary disease. Vasu Lr MD CT Angiography 09/18/16 0000 Signed Impressions: Service Date/Time: Sunday, September 18, 2016 23:49 - CONCLUSION: 1. Streak artifact decreases the sensitivity for pulmonary embolus on this study but no pulmonary embolus identified. 2. Cardiomegaly, central pulmonary vasculature prominence and mild bilateral groundglass pulmonary opacity suggesting pulmonary vascular congestion/mild pulmonary edema. Jeff Floyd MD Objective Remarks awake and alert, NAD anicteric, throat no exudates no nuchal rigidity no thrush no rales or wheezes regular rhythm HR 99 abdomen soft, flabby nontender extremities no edema neuro exam- non focal A/P Assessment and Plan 35-year-old female presenting with cough generalized flulike symptoms fever or chills, last night apparently had chills and tachycardia CTA done negative for PE, EEG negative for seizure activity Sepsis SIRS secondary to Influenza B infection - T max 102 r/o superimprosed bacterial infection Patient started on Tamiflu 75 mg by mouth twice a day Patient with very poor by mouth appetite clinically dry will start patient on gentle hydration CXR reviewed- no acute infiltrates negative cultures so far sputum no growth Chest pains secondary to cough. Troponins negative twelve-lead EKG unremarkable. / tylenol prn History of hypertension, uncontrolled with history of cardiomyopathy EF of 40% on review of old records.- now with lSBPs in the 100s off meds while here- good readings Diarrhea- likely part of viral syndrome- no further episodes encourage po. OP ff up Hyperlipidemia continue on statins History of anxiety/depression Continue on Seroquel and clonazepam History of hyperreactive airway disease in remission Continue albuterol MDI 2 puffs every 6 Diabetes type 2 monitor blood sugars. FF BS. 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 Continue aspirin. Encourage ambulation Obesity Lovenox for DVT prophylaxis - BMI 45.6. Discussed with patient- weight reduction and exercise. very motivated DC with her OP ff up- states she has MD names to call to set up with diet diabetic diet activity as tolerated Meds : new: Tamiflu 75 mg po bid #5 Tye Bae MD Sep 20, 2016 08:13
[2016-09-20] MEDS: OSELTAMIVIR PHOSPHATE 75 MG CAP PO SCH (08:30)
[2016-09-20] MEDS: SODIUM CHLORIDE 0.9% FLUSH 10 ML FLUSH IV FLUSH SCH (08:30)
[2016-09-20] MEDS: SERTRALINE HCL 100 MG TAB PO SCH (08:30)
[2016-09-20] MEDS: CHLORPHENIR/HYDROCOD LIQUID 8 MG/10 MG/5 ML CUP PO SCH (08:30)
[2016-09-20] MEDS: ASPIRIN EC 81 MG TABEC PO SCH (08:30)
[2016-09-20] MEDS: clonazePAM 0.5 MG TAB PO SCH (08:30)
[2016-09-20 16:51] LABS: POTASSIUM 3.7 MEQ/L (3.5-5.1)
[2016-09-20] MEDS ORDERED: OSEL75 PO ×2 (17:26→17:39)
== END 2016-09-20 18:59 | disposition home or self-care (01) ==
LOC: NEPD 22:25 → NEDA 09-18 02:26 → NEPHCDU 09-18 12:35
PROVIDERS: ADMIT Internal Medicine; ATTEND Internal Medicine
DX: A41.9 Sepsis, unspecified organism (principal); J10.1 Influenza due to other identified influenza virus with other respiratory manifestations; R94.31 Abnormal electrocardiogram [ECG] [EKG]; R19.7 Diarrhea, unspecified; R42 Dizziness and giddiness; R55 Syncope and collapse; R63.5 Abnormal weight gain; R00.0 Tachycardia, unspecified; I11.0 Hypertensive heart disease with heart failure; I50.9 Heart failure, unspecified; I25.2 Old myocardial infarction; J45.909 Unspecified asthma, uncomplicated; I42.9 Cardiomyopathy, unspecified; E78.5 Hyperlipidemia, unspecified; E11.9 Type 2 diabetes mellitus without complications; F41.8 Other specified anxiety disorders; E78.00 Pure hypercholesterolemia, unspecified; H40.9 Unspecified glaucoma; F41.9 Anxiety disorder, unspecified; I69.320 Aphasia following cerebral infarction; I69.351 Hemiplegia and hemiparesis following cerebral infarction affecting right dominant side; I69.954 Hemiplegia and hemiparesis following unspecified cerebrovascular disease affecting left non-dominant side; E66.9 Obesity, unspecified; Z68.42 Body mass index [BMI] 45.0-49.9, adult; F17.200 Nicotine dependence, unspecified, uncomplicated; Z79.84 Long term (current) use of oral hypoglycemic drugs; Z79.82 Long term (current) use of aspirin; Z79.899 Other long term (current) drug therapy; W19.XXXA Unspecified fall, initial encounter
CPT/HCPCS: 70450; 71010; 71275; 80048; 80076; 80307; 81001; 82550; 82552; 82948; 83036; 83605; 83735; 83880; 84484; 85025; 85610; 85730; 86140; 87040; 87070; 87205; 87804; 93005; 94664; 95819; 99285; G0378; J1650; J7030; Q9967

== ENCOUNTER 2016-12-04 16:54 | Emergency (ER) | payer MEDICAID ==
[~2016-12-04] VITALS: Ht 180.3 cm; Wt 125.0 kg
[~2016-12-04 16:54] MED LIST changes: -MACR100C2 PO; -METF500T PO; -MOBI7.5T PO; +OSEL75 PO
== END 2016-12-04 20:30 | disposition left against medical advice (07) ==
LOC: NED 16:54
DX: M25.559 Pain in unspecified hip (principal); Z53.21 Procedure and treatment not carried out due to patient leaving prior to being seen by health care provider
CPT/HCPCS: 99281

== ENCOUNTER 2017-01-11 09:23 | Emergency (ER) | payer MEDICAID ==
[2017-01-11 09:35] VITALS: BP 206/125; PULSE 83; RESP 20; TEMP 98.5; O2SAT 99
[2017-01-11] MEDS ORDERED: SODIUM CHLORIDE 0.9% FLUSH 10 ML FLUSH IV FLUSH PRN (10:00)
[2017-01-11 10:34] LABS: AUTOMATED NEUTROPHIL # 12.2 TH/MM3 (1.8-7.7); BASOPHIL # 0.1 TH/MM3 (0-0.2); BASOPHIL % 0.3 % (0.0-2.0); EOSINOPHIL # 0.1 TH/MM3 (0-0.4); EOSINOPHIL % 0.4 % (0.0-4.0); HEMATOCRIT 40.8 % (35.0-46.0); HEMO FLAGS DIFF FINAL; LYMPH % 16.4 % (9.0-44.0); LYMPHOCYTE # 2.6 TH/MM3 (1.0-4.8); MEAN CELL VOLUME 91.2 FL (80.0-100.0); MEAN CORPUSCULAR HEMOGLOBIN 29.6 PG (27.0-34.0); MEAN CORPUSCULAR HGB CONC 32.4 % (32.0-36.0); MONO % 4.7 % (0.0-8.0); NEUT % 78.2 % (16.0-70.0); PLATELET COUNT 301 TH/MM3 (150-450); RED BLOOD COUNT 4.47 MIL/MM3 (4.00-5.30); RED CELL DISTRIBUTION WIDTH 13.9 % (11.6-17.2); WHITE BLOOD COUNT 15.6 TH/MM3 (4.0-11.0)
--- NOTE | 2017-01-11 10:40 | PD ---
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 Patient reports that she has had heavy vaginal bleeding for the past 6 months, reports that she has been unable to see her physician for this as she cannot find a primary care physician and she is currently requesting a hysterectomy while in the emergency room. Patient reports that she has been feeling generalized weakness, reports that she has been feeling nauseous with no vomiting. Patient reports that she has been using multiple heavy pads throughout the day over the past 6 months. Denies any overt vaginal discharge. Patient reports that she has multiple medical problems, she is not taking any other medications for the past 3 weeks as she has run out all her medications and is currently requesting a refill all her medications. Patient denies any chest pain or shortness of breath, reports crampy lower abdominal pain. Patient with no fever or chills, patient with no other complaints. PFSH Past Medical History Hx Anticoagulant Therapy: Yes Asthma: No Blood Disorders: No Anxiety: Yes Depression: Yes Heart Rhythm Problems: Yes Cancer: No Cardiovascular Problems: Yes High Cholesterol: Yes Chest Pain: Yes Congestive Heart Failure: Yes Cerebrovascular Accident: Yes Diabetes: Yes Patient Takes Glucophage: Yes Diminished Hearing: No Endocrine: Yes Glaucoma: Yes Genitourinary: No Hypertension: Yes Immune Disorder: No Implanted Vascular Access Dvce: Yes Musculoskeletal: No Psychiatric: Yes Reproductive: No Respiratory: Yes Thyroid Disease: No ?: Not Ovarian Cysts: Yes Dilation and Curettage (D&C): Yes Past Surgical History Genitourinary Surgery: Yes (OVARIAN CYST REMOVAL ) Other Surgery: Yes Social History Alcohol Use: Yes (occasional) Tobacco Use: Yes (1ppd) Substance Use: Yes (marijuana) Allergies-Medications (Allergen,Severity, Reaction): Coded Allergies: codeine (Verified Adverse Reaction, Mild, Nausea/Vomiting, 01/11/17) Reported Meds & Prescriptions Reported Meds & Active Scripts Active Amlodipine (Amlodipine Besylate) 10 Mg Tab 10 Mg PO DAILY Lisinopril 10 Mg Tab 10 Mg PO DAILY Naproxen 500 Mg Tab 500 Mg PO BID Reported Seroquel (Quetiapine Fumarate) 300 Mg Tab 300 Mg PO HS Proair Hfa 8.5 GM Inh (Albuterol Sulfate) 90 Mcg/Act Aer 2 Puff INH Q4-6H PRN 108 mcg/actuation Lisinopril 10 Mg Tab 10 Mg PO DAILY Aspirin 81 Mg Tabdr 81 Mg PO DAILY Atorvastatin (Atorvastatin Calcium) 40 Mg Tab 40 Mg PO HS Amlodipine (Amlodipine Besylate) 10 Mg Tab 10 Mg PO DAILY Klonopin (Clonazepam) 0.5 Mg Tab 0.5 Mg PO DAILY Zoloft (Sertraline HCl) 100 Mg Tab 100 Mg PO DAILY Review of Systems General / Constitutional: No: Fever Eyes: No: Visual changes HENT: No: Headaches, Vertigo, Lightheadedness, Sore Throat, Neck Pain Cardiovascular: No: Chest Pain or Discomfort Respiratory: No: Shortness of Breath Gastrointestinal: Positive: Nausea, No: Vomiting, Abdominal Pain Genitourinary: Positive: Vaginal Bleeding, No: Dysuria Musculoskeletal: No: Pain Skin: No Rash Neurologic: No: Weakness Psychiatric: No: Depression Endocrine: No: Polydipsia Hematologic/Lymphatic: No: Easy Bruising Physical Exam Narrative GENERAL: Mild distress SKIN: Focused skin assessment warm/dry. HEAD: Atraumatic. Normocephalic. EYES: Pupils equal and round. No scleral icterus. No injection or drainage. ENT: No nasal bleeding or discharge. Mucous membranes pink and moist. NECK: Trachea midline. No JVD. CARDIOVASCULAR: Regular rate and rhythm. No murmur appreciated. RESPIRATORY: No accessory muscle use. Clear to auscultation. Breath sounds equal bilaterally. GASTROINTESTINAL: Abdomen soft, non-tender, nondistended. Hepatic and splenic margins not palpable. MUSCULOSKELETAL: No obvious deformities. No clubbing. No cyanosis. No edema. NEUROLOGICAL: Awake and alert. No obvious cranial nerve deficits. Motor grossly within normal limits. Normal speech. PSYCHIATRIC: Appropriate mood and affect; insight and judgment normal. Data Data Last Documented VS Vital Signs Date Time Temp Pulse Resp B/P (MAP) Pulse Ox O2 Delivery O2 Flow Rate FiO2 01/11/17 09:35 98.5 83 20 206/125 (152) 99 Orders Orders Basic Metabolic Panel (Bmp) (01/11/17 09:51) Beta Hcg (Quant/Titer) (01/11/17 09:51) Complete Blood Count With Diff (01/11/17 09:51) Prothrombin Time / Inr (Pt) (01/11/17 09:51) Act Partial Throm Time (Ptt) (01/11/17 09:51) Urinalysis - C+S If Indicated (01/11/17 09:51) Iv Access Insert/Monitor (01/11/17 09:51) Ecg Monitoring (01/11/17 09:51) Oximetry (01/11/17 09:51) Sodium Chloride 0.9% Flush (Ns Flush) (01/11/17 10:00) Ed Urine Pregnancytest Poc (01/11/17 09:51) Ondansetron Inj (Zofran Inj) (01/11/17 10:45) Amlodipine (Norvasc) (01/11/17 10:45) Lisinopril (Prinivil) (01/11/17 10:45) Urine Culture (01/11/17 12:10) Nitrofurantoin Monohyd Macrocr (Macrobid (01/11/17 13:15) Ketorolac Inj (Toradol Inj) (01/11/17 13:15) Labs Laboratory Tests Test 01/11/17 10:12 01/11/17 12:10 White Blood Count 15.6 TH/MM3 Red Blood Count 4.47 MIL/MM3 Hemoglobin 13.2 GM/DL Hematocrit 40.8 % Mean Corpuscular Volume 91.2 FL Mean Corpuscular Hemoglobin 29.6 PG Mean Corpuscular Hemoglobin Concent 32.4 % Red Cell Distribution Width 13.9 % Platelet Count 301 TH/MM3 Mean Platelet Volume 9.4 FL Neutrophils (%) (Auto) 78.2 % Lymphocytes (%) (Auto) 16.4 % Monocytes (%) (Auto) 4.7 % Eosinophils (%) (Auto) 0.4 % Basophils (%) (Auto) 0.3 % Neutrophils # (Auto) 12.2 TH/MM3 Lymphocytes # (Auto) 2.6 TH/MM3 Monocytes # (Auto) 0.7 TH/MM3 Eosinophils # (Auto) 0.1 TH/MM3 Basophils # (Auto) 0.1 TH/MM3 CBC Comment DIFF FINAL Differential Comment Prothrombin Time 10.3 SEC Prothromb Time International Ratio 0.9 RATIO Activated Partial Thromboplast Time 27.8 SEC Blood Urea Nitrogen 5 MG/DL Creatinine 0.66 MG/DL Random Glucose 108 MG/DL Calcium Level 8.5 MG/DL Sodium Level 138 MEQ/L Potassium Level 4.4 MEQ/L Chloride Level 106 MEQ/L Carbon Dioxide Level 26.6 MEQ/L Anion Gap 5 MEQ/L Estimat Glomerular Filtration Rate 121 ML/MIN Human Chorionic Gonadotropin, Quant LESS THAN 1 MIU/ML Urine Color LIGHT-YELLOW Urine Turbidity CLEAR Urine pH 7.5 Urine Specific Eagle 1.013 Urine Protein NEG mg/dL Urine Glucose (UA) NEG mg/dL Urine Ketones NEG mg/dL Urine Occult Blood MOD Urine Nitrite NEG Urine Bilirubin NEG Urine Urobilinogen LESS THAN 2.0 MG/DL Urine Leukocyte Esterase MOD Urine RBC /hpf Urine WBC 13 /hpf Urine Squamous Epithelial Cells 1 /hpf Urine Bacteria RARE /hpf Urine Mucus FEW /lpf Microscopic Urinalysis Comment CULTURE INDICATED MDM Medical Decision Making Medical Screen Exam Complete: Yes Emergency Medical Condition: Yes Medical Record Reviewed: Yes Interpretation(s) Vital Signs Date Time Temp Pulse Resp B/P (MAP) Pulse Ox O2 Delivery O2 Flow Rate FiO2 01/11/17 09:35 98.5 83 20 206/125 (152) 99 Differential Diagnosis Symptomatic anemia, irregular vaginal bleeding, electrolyte abnormality, medication noncompliance Narrative Course 36-year-old female who presents to emergency room requesting a hysterectomy as she has had 6 months of irregular vaginal bleeding. Patient also requesting refills on all her medications as she has not taken anything for the past 3 weeks as she cannot find a primary care doctor. During the course of the patients emergency department visit, the patients history, examination, and differential diagnosis were reviewed with the patient. The patient was placed on a soda maker with oximetry and frequent blood pressure monitoring. The patient had a 20-gauge IV access obtained and blood work sent for analysis. The patient was initially provided IVF, Toradol, zofran, macrobid The patients laboratory studies were reviewed and remarkable for Laboratory Tests Test 01/11/17 10:12 01/11/17 12:10 White Blood Count 15.6 TH/MM3 (4.0-11.0) Red Blood Count 4.47 MIL/MM3 (4.00-5.30) Hemoglobin 13.2 GM/DL (11.6-15.3) Hematocrit 40.8 % (35.0-46.0) Mean Corpuscular Volume 91.2 FL (80.0-100.0) Mean Corpuscular Hemoglobin 29.6 PG (27.0-34.0) Mean Corpuscular Hemoglobin Concent 32.4 % (32.0-36.0) Red Cell Distribution Width 13.9 % (11.6-17.2) Platelet Count 301 TH/MM3 (150-450) Mean Platelet Volume 9.4 FL (7.0-11.0) Neutrophils (%) (Auto) 78.2 % (16.0-70.0) Lymphocytes (%) (Auto) 16.4 % (9.0-44.0) Monocytes (%) (Auto) 4.7 % (0.0-8.0) Eosinophils (%) (Auto) 0.4 % (0.0-4.0) Basophils (%) (Auto) 0.3 % (0.0-2.0) Neutrophils # (Auto) 12.2 TH/MM3 (1.8-7.7) Lymphocytes # (Auto) 2.6 TH/MM3 (1.0-4.8) Monocytes # (Auto) 0.7 TH/MM3 (0-0.9) Eosinophils # (Auto) 0.1 TH/MM3 (0-0.4) Basophils # (Auto) 0.1 TH/MM3 (0-0.2) CBC Comment DIFF FINAL Differential Comment Prothrombin Time 10.3 SEC (9.8-11.6) Prothromb Time International Ratio 0.9 RATIO Activated Partial Thromboplast Time 27.8 SEC (24.3-30.1) Blood Urea Nitrogen 5 MG/DL (7-18) Creatinine 0.66 MG/DL (0.50-1.00) Random Glucose 108 MG/DL (74-106) Calcium Level 8.5 MG/DL (8.5-10.1) Sodium Level 138 MEQ/L (136-145) Potassium Level 4.4 MEQ/L (3.5-5.1) Chloride Level 106 MEQ/L (98-107) Carbon Dioxide Level 26.6 MEQ/L (21.0-32.0) Anion Gap 5 MEQ/L (5-15) Estimat Glomerular Filtration Rate 121 ML/MIN (>89) Human Chorionic Gonadotropin, Quant LESS THAN 1 MIU/ML (0-5) Urine Color LIGHT-YELLOW (YELLW/STRAW) Urine Turbidity CLEAR (CLEAR) Urine pH 7.5 (5.0-8.5) Urine Specific Eagle 1.013 (1.002-1.035) Urine Protein NEG mg/dL (NEG-TRACE) Urine Glucose (UA) NEG mg/dL (NEG) Urine Ketones NEG mg/dL (NEG) Urine Occult Blood MOD (NEG) Urine Nitrite NEG (NEG) Urine Bilirubin NEG (NEG) Urine Urobilinogen LESS THAN 2.0 MG/DL (LESS Urine Leukocyte Esterase MOD (NEG) Urine RBC /hpf (0-3) Urine WBC 13 /hpf (0-5) Urine Squamous Epithelial Cells 1 /hpf (0-5) Urine Bacteria RARE /hpf (NONE) Urine Mucus FEW /lpf (OCC) Microscopic Urinalysis Comment CULTURE INDICATED Reviewed all labs and all studies with patient in detail. Patient with a 15.6 white blood cell count, most likely from UTI, urine culture sent. Plan to start patient on macrobid. Patient reports that she is feeling much better at this time. Patient's hemoglobin is 13.2. Patient understands need to follow-up with gynecology for further workup of her irregular vaginal bleeding. Signs and symptoms of when to return to emergency room was reviewed patient in detail. Patient understands need to follow-up with her primary care doctor, will give her referrals to the [facility]. Patient understands that I cannot admit her to hospital at this time for an emergent hysterectomy and that she will need to follow-up with collection systems administrator for further workup of her irregular vaginal bleeding. Diagnosis Primary Impression: UTI (urinary tract infection) Additional Impression: Vaginal bleeding Referrals: [facility] Patient Instructions: General Instructions Additional Instructions: Please follow up with your primary care doctor in 2-3 days Return to the ER if symptoms worsen or progress Return to the ER as needed Please follow up with collection systems administrator as soon as possible Please follow-up with all cultures from today. Med/Other Pt SpecificInfo: Prescription(s) given Scripts Amlodipine (Amlodipine) 10 Mg Tab 10 MG PO DAILY for Blood Pressure Management, #30 TAB 0 Refills Prov: Ellen Reina DO 01/11/17 Lisinopril (Lisinopril) 10 Mg Tab 10 MG PO DAILY, #30 TAB 0 Refills Prov: Ellen Reina DO 01/11/17 Naproxen (Naproxen) 500 Mg Tab 500 MG PO BID, #20 TAB 0 Refills Prov: Ellen Reina DO 01/11/17 Disposition: 01 DISCHARGE HOME Condition: Stable Ellen Reina DO Jan 11, 2017 10:40
[2017-01-11 10:43] LABS: APTT (PATIENT) 27.8 SEC (24.3-30.1); INTERNATIONAL NORMALIZED RATIO 0.9 RATIO; PROTHROMBIN TIME - PATIENT 10.3 SEC (9.8-11.6)
[2017-01-11] MEDS ORDERED: ONDANSETRON HCL 4 MG/2 ML VIAL IV PUSH ONE (10:45)
[2017-01-11] MEDS ORDERED: LISINOPRIL 10 MG TAB PO ONE (10:45)
[2017-01-11 11:07] LABS: ANION GAP 5 MEQ/L (5-15); BETA HCG QUANT LESS THAN 1 MIU/ML (0-5); BICARBONATE 26.6 MEQ/L (21.0-32.0); BLOOD UREA NITROGEN 5 MG/DL (7-18); CHLORIDE 106 MEQ/L (98-107); GLOMERULAR FILTRATION RATE 121 ML/MIN (>89); SODIUM (NA) 138 MEQ/L (136-145)
[2017-01-11 11:13] LABS: POTASSIUM 4.4 MEQ/L (3.5-5.1)
[2017-01-11 12:48] LABS: BACTERIA, URINE RARE /hpf; BLOOD, URINE MOD (NEG); COMMENT (UR) CULTURE INDICATED; CULTURE IF INDICATED CULTURE INDICATED; GLUCOSE,URINE NEG (NEG); KETONE, URINE NEG (NEG); MUCUS URINE FEW /lpf (OCC); NITRITE,URINE NEG (NEG); PH, URINE 7.5 (5.0-8.5); SQUAMOUS EPITHELIAL CELL URINE 1 /hpf (0-5); URINE COLOR LIGHT-YELLOW (YELLW/STRAW)
[2017-01-11] MEDS ORDERED: NITROFURANTOIN MONOHYD MACROCR 100 MG CAP PO ONE (13:15)
[2017-01-11] MEDS ORDERED: KETOROLAC TROMETHAMINE 30 MG/ML (IVP) VIAL IV PUSH ONE (13:15)
[2017-01-11] MEDS ORDERED: AMLO10TA2 PO (13:18)
[2017-01-11] MEDS ORDERED: NAPR500T2 PO (13:18)
[2017-01-11] MEDS ORDERED: LISI10TA3 PO (13:18)
[2017-01-11] MEDS ORDERED: MACR100C2 PO (13:26)
[2017-01-11 13:33] VITALS: BP 199/100; TEMP 82; O2SAT 99
== END 2017-01-11 13:34 | disposition home or self-care (01) ==
LOC: NEPD 09:23
DX: N39.0 Urinary tract infection, site not specified (principal); N93.9 Abnormal uterine and vaginal bleeding, unspecified; J44.9 Chronic obstructive pulmonary disease, unspecified; E78.00 Pure hypercholesterolemia, unspecified; E11.9 Type 2 diabetes mellitus without complications; I10 Essential (primary) hypertension; Z72.0 Tobacco use; Z79.01 Long term (current) use of anticoagulants
CPT/HCPCS: 80048; 81001; 84702; 84703; 85025; 85610; 85730; 87086; 96374; 99284; J2405

== ENCOUNTER 2017-04-06 20:41 | Emergency (ER) | payer MEDICAID ==
[~2017-04-06] VITALS: Ht 180.3 cm; Wt 100.0 kg
[~2017-04-06 20:41] MED LIST changes: +MACR100C2 PO; +NAPR500T2 PO; -OSEL75 PO
[2017-04-06 20:43] VITALS: BP 162/94; PULSE 95; RESP 16; TEMP 98.7; O2SAT 98
[2017-04-06 22:35] VITALS: BP 134/63; PULSE 82; RESP 19
[2017-04-06] MEDS ORDERED: PROPARACAINE HCL 0.5% OPHT SOLN 15 ML BTL EACH EYE ONE (22:45)
--- NOTE | 2017-04-06 22:58 | PD ---
HPI Chief Complaint: Hypertension Time Seen by Provider: 22:30 Travel History International Travel<30 days: No Contact w/Intl Traveler<30days: No Traveled to known affect area: No History of Present Illness HPI The patient is a 36 year old female who presents to the [facility] emergency department with a history of having a headache behind her left that began earlier today. She reports that she took her blood pressure earlier today and it was noted to be elevated. 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 The patient reports on review of systems also having chest pain, however she reports that this is been present for the last year. She denies having any shortness of breath. She denies having any recent fevers or chills, cough or congestion. She denies having any vomiting or diarrhea. She reports that she has been eating and drinking well. She denies having any new one-sided weakness, numbness or tingling to her extremities, vision changes, or facial droop. [facility] Past Medical History Narrative Medical The patient's past medical history is significant for obesity, hypertension, diabetes mellitus, hyperlipidemia, history of prior cerebrovascular accident with residual mild expressive aphasia and mild right-sided weakness, history of depression, anxiety. Hx Anticoagulant Therapy: Yes Asthma: No Blood Disorders: No Anxiety: Yes Depression: Yes Heart Rhythm Problems: Yes Cancer: No Cardiovascular Problems: Yes High Cholesterol: Yes Chest Pain: Yes Congestive Heart Failure: Yes Cerebrovascular Accident: Yes Diabetes: Yes Patient Takes Glucophage: No Diminished Hearing: No Endocrine: Yes Glaucoma: Yes Genitourinary: No Hypertension: Yes Immune Disorder: No Implanted Vascular Access Dvce: Yes Musculoskeletal: No Psychiatric: Yes Reproductive: No Respiratory: Yes Thyroid Disease: No ?: Unknown Ovarian Cysts: Yes Dilation and Curettage (D&C): Yes Past Surgical History Narrative Surgical The patient's past surgical history is significant for ovarian cyst removal. Genitourinary Surgery: Yes (OVARIAN CYST REMOVAL ) Other Surgery: Yes Social History Alcohol Use: Yes (occasional) Tobacco Use: No Substance Use: Yes (marijuana) Allergies-Medications (Allergen,Severity, Reaction): Coded Allergies: codeine (Verified Adverse Reaction, Mild, Nausea/Vomiting, 01/11/17) Reported Meds & Prescriptions Reported Meds & Active Scripts Active Macrobid (Nitrofurantoin Monoh/Nitrofur Macro) 100 Mg Cap 100 Mg PO BID 10 Days Review of Systems Except as stated in HPI: all other systems reviewed are Neg General / Constitutional: No: Fever Eyes: No: Visual changes HENT: Positive: Headaches, No: Rhinorrhea, Congestion, Neck Stiffness, Neck Pain Cardiovascular: No: Chest Pain or Discomfort Respiratory: No: Shortness of Breath Gastrointestinal: No: Nausea, Vomiting, Diarrhea, Abdominal Pain Genitourinary: No: Dysuria Musculoskeletal: No: Pain Skin: No Rash Neurologic: Positive: Focal Abnormalities (no new focal abnormal), Headache, No : Weakness, Change in Mentation, Slurred Speech, Sensory Disturbance Psychiatric: No: Depression Endocrine: No: Polydipsia Hematologic/Lymphatic: No: Easy Bruising Physical Exam Narrative General: The patient is a well-developed well-nourished female in no acute distress. Head and Neck exam: Head is normocephalic atraumatic. Eyes: EOMI, pupils are equal round and reactive to light. Nose: Midline septum with pink mucous membranes Mouth: Dentition unremarkable. Moist mucus membranes. Posterior oropharynx is not erythematous. No tonsillar hypertrophy. Uvula midline. Airway patent. Neck: No palpable lymphadenopathy. No nuchal rigidity. No thyromegaly. Cardiovascular: Regular rate and rhythm without murmurs, gallops, or rubs. Lungs: Clear to auscultation bilaterally. No wheezes, rhonchi, or rales. Abdomen: Soft, without tenderness to palpation in all 4 quadrants of the abdomen. No guarding, rebound, or rigidity. Normal bowel sounds are audible. No tenderness on palpation of McBurney's point. Extremities: No clubbing, cyanosis, or edema. 2+ pulses in all 4 extremities. No calf tenderness on palpation. Back: No costovertebral angle tenderness to palpation. Neurologic Exam: Grossly nonfocal. Skin Exam: No rash noted. Intact skin that is warm and dry. Data Data Last Documented VS Vital Signs Date Time Temp Pulse Resp B/P (MAP) Pulse Ox O2 Delivery O2 Flow Rate FiO2 04/07/17 01:07 04/06/17 23:38 79 18 97 Room Air 04/06/17 20:43 98.7 Orders Orders Electrocardiogram (04/06/17 22:44) Complete Blood Count With Diff (04/06/17 22:44) Comprehensive Metabolic Panel (04/06/17 22:44) Creatine Kinase (Cpk) (04/06/17 22:44) Ckmb (Isoenzyme) Profile (04/06/17 22:44) Troponin I (04/06/17 22:44) Prothrombin Time / Inr (Pt) (04/06/17 22:44) Act Partial Throm Time (Ptt) (04/06/17 22:44) Lipase (04/06/17 22:44) Urinalysis - C+S If Indicated (04/06/17 22:44) Chest, Single Ap (04/06/17 22:44) Ct Brain W/O Iv Contrast(Rout) (04/06/17 22:44) Iv Access Insert/Monitor (04/06/17 22:44) Ecg Monitoring (04/06/17 22:44) Oximetry (04/06/17 22:44) Proparacaine 0.5% Opth Soln (Alcaine 0.5 (04/06/17 22:45) Ed Urine Pregnancytest Poc (04/06/17 22:44) CKMB (04/06/17 23:20) CKMB% (04/06/17 23:20) Acetaminophen (Tylenol) (04/07/17 00:30) Urine Culture (04/06/17 23:55) Ed Discharge Order (04/07/17 01:11) Labs Laboratory Tests Test 04/06/17 23:20 04/06/17 23:55 White Blood Count 11.4 TH/MM3 Red Blood Count 4.36 MIL/MM3 Hemoglobin 12.9 GM/DL Hematocrit 38.4 % Mean Corpuscular Volume 88.1 FL Mean Corpuscular Hemoglobin 29.6 PG Mean Corpuscular Hemoglobin Concent 33.6 % Red Cell Distribution Width 13.7 % Platelet Count 285 TH/MM3 Mean Platelet Volume 9.2 FL CBC Comment AUTO DIFF Differential Total Cells Counted 100 Neutrophils % (Manual) 55 % Lymphocytes % 38 % Monocytes % 5 % Eosinophils % 2 % Neutrophils # (Manual) 6.3 TH/MM3 Differential Comment FINAL DIFF MANUAL Platelet Estimate NORMAL Platelet Morphology Comment ENLARGED Red Cell Morphology Comment NORMAL Prothrombin Time 10.7 SEC Prothromb Time International Ratio 1.1 RATIO Activated Partial Thromboplast Time 28.2 SEC Blood Urea Nitrogen 9 MG/DL Creatinine 0.78 MG/DL Random Glucose 108 MG/DL Total Protein 8.1 GM/DL Albumin 3.3 GM/DL Calcium Level 9.2 MG/DL Alkaline Phosphatase 124 U/L Aspartate Amino Transf (AST/SGOT) 16 U/L Alanine Aminotransferase (ALT/SGPT) 19 U/L Total Bilirubin 0.3 MG/DL Sodium Level 140 MEQ/L Potassium Level 3.6 MEQ/L Chloride Level 104 MEQ/L Carbon Dioxide Level 29.8 MEQ/L Anion Gap 6 MEQ/L Estimat Glomerular Filtration Rate 100 ML/MIN Total Creatine Kinase 133 U/L Creatine Kinase MB 0.6 NG/ML Troponin I LESS THAN 0.02 NG/ML Lipase 155 U/L Urine Color YELLOW Urine Turbidity HAZY Urine pH 5.5 Urine Specific [place] 1.036 Urine Protein 30 mg/dL Urine Glucose (UA) NEG mg/dL Urine Ketones TRACE mg/dL Urine Occult Blood LARGE Urine Nitrite NEG Urine Bilirubin NEG Urine Urobilinogen 4.0 MG/DL Urine Leukocyte Esterase LARGE Urine RBC 11 /hpf Urine WBC 40 /hpf Urine Squamous Epithelial Cells 5 /hpf Urine Bacteria OCC /hpf Urine Hyaline Casts 3 /lpf Urine Granular Casts 1 /lpf Urine Mucus MANY /lpf Microscopic Urinalysis Comment CULTURE INDICATED MDM Medical Decision Making Medical Screen Exam Complete: Yes Emergency Medical Condition: Yes Medical Record Reviewed: Yes Interpretation(s) Last Impressions Chest X-Ray 04/06/174 Signed Impressions: Service Date/Time: Thursday, April 06, 2017 23:05 - CONCLUSION: No acute disease. Diego Issa MD Differential Diagnosis Headache caused by: Intracranial abnormality, versus poorly controlled hypertension, versus lipoma, versus migraine headache, versus tension headache, versus cluster headache Narrative Course During the course of the patients emergency department visit, the patients history, examination, and differential diagnosis were reviewed with the patient. The patient was placed on a birth attendant with oximetry and frequent blood pressure monitoring. The patient had IV access obtained and blood work sent for analysis. The patient's repeat blood pressure on arrival back to the room is 134/63. The patient had an ECG done on arrival that shows a sinus rhythm heart rate of 75, no acute ST segment elevation or depression. The patient was initially provided Tylenol for pain. The patients laboratory studies were reviewed and remarkable for a CMP is remarkable for a glucose of 108, alkaline phosphatase 124, cardiac enzymes within normal limits, lipase 155, CBC are is remarkable for a white count of 11.4, hemoglobin 12.9, platelets 285 with a normal differential. PT 10.7, PTT 28.2. Urinalysis shows concentrated urine, trace ketones, large occult blood, 4 urobilinogen, large leukocyte esterase, 11 rbc's, 40 wbc's, occasional bacteria, culture indicated. This is consistent with a urinary tract infection. Radiology studies were reviewed and remarkable for a chest x-ray that shows no acute cardiopulmonary disease, CT scan of the brain shows no acute findings, incidental stable dural calcifications compared to September 2016. The patient's eye pressure was checked in both eyes with the [place]-Pen. The patient's right eye pressure was 18, the patient's left eye pressure was 15. However as the patient reports that she has not seen an eye doctor since late 2015, I did recommend that she follow-up with a local retail specialist for a dilated eye exam and further testing. The patient will be sent home with a prescription for Macrobid. The patient is resting comfortably and feels better, is alert and in no distress. The patients results and examination findings were discussed with the patient. The repeat examination is unremarkable and benign. The history, exam, diagnostic testing, and current condition do not suggest any significant pathology to warrant further testing, continued ED treatment, admission, or surgical evaluation at this point. The vital signs have been stable. The patient does not have uncontrollable pain, intractable vomiting, or other significant symptoms. The patient's condition is stable and appropriate for discharge. The patient will pursue further outpatient evaluation with a primary care physician or other designated or consulting physician as indicated in the discharge instructions. The patient expressed understanding and was agreeable with this plan. Diagnosis Primary Impression: Headache Qualified Codes: R51 - Headache Additional Impressions: Hypertension Qualified Codes: I10 - Essential (primary) hypertension UTI (urinary tract infection) Qualified Codes: N30.01 - Acute cystitis with hematuria Referrals: Vocational Rehabilitation Teacher 1 day Primary Care Physician 3 days Patient Instructions: General Headache (ED), General Instructions, Urinary Tract Infection in Women (ED) Med/Other Pt SpecificInfo: No Change to Meds Scripts Nitrofurantoin Monohydrate Macrocrystals (Macrobid) 100 Mg Cap 100 MG PO BID for Infection for 10 Days, #20 CAP 0 Refills Prov: Deborah Ryan MD 04/07/17 Disposition: 01 DISCHARGE HOME Condition: Stable Deborah Ryan MD Apr 06, 2017 22:57
--- NOTE | 2017-04-06 23:19 | RADRPT ---
EXAM DATE/TIME: 04/06/2017 23:05 [facility] COMPARISON: No previous studies available for comparison. INDICATIONS : Short of breath, elevated blood pressure. MEDICAL HISTORY : Hypertension. SURGICAL HISTORY : None. ENCOUNTER: Initial ACUITY: 1 day PAIN SCORE: 5/10 LOCATION: Bilateral chest FINDINGS: A single view of the chest demonstrates the lungs to be symmetrically aerated without evidence of mas s, infiltrate or effusion. The cardiomediastinal contours are prominent. Osseous structures are int act. CONCLUSION: No acute disease. Diego Issa MD on April 06, 2017 at 23:15 Board Certified Radiologist. This report was verified electronically.
[2017-04-06 23:30] VITALS: O2SAT 98
[2017-04-06 23:33] LABS: HEMATOCRIT 38.4 % (35.0-46.0); HEMOGLOBIN 12.9 GM/DL (11.6-15.3); MEAN CELL VOLUME 88.1 FL (80.0-100.0); MEAN CORPUSCULAR HEMOGLOBIN 29.6 PG (27.0-34.0); MEAN CORPUSCULAR HGB CONC 33.6 % (32.0-36.0); MEAN PLATELET VOLUME 9.2 FL (7.0-11.0); PLATELET COUNT 285 TH/MM3 (150-450); RED BLOOD COUNT 4.36 MIL/MM3 (4.00-5.30); RED CELL DISTRIBUTION WIDTH 13.7 % (11.6-17.2); WHITE BLOOD COUNT 11.4 TH/MM3 (4.0-11.0)
[2017-04-06 23:38] VITALS: BP 133/82; PULSE 79; RESP 18; O2SAT 97
[2017-04-06 23:46] LABS: INTERNATIONAL NORMALIZED RATIO 1.1 RATIO; PROTHROMBIN TIME - PATIENT 10.7 SEC (9.8-11.6)
[2017-04-06 23:53] LABS: ALT (GPT) 19 U/L (10-53)
[2017-04-06 23:57] LABS: ALKALINE PHOSPHATASE 124 U/L (45-117); TOTAL BILIRUBIN ADULT 0.3 MG/DL (0.2-1.0); TOTAL PROTEIN 8.1 GM/DL (6.4-8.2); TROPONIN I LESS THAN 0.02 NG/ML (0.02-0.05)
[2017-04-07] LABS: ALBUMIN 3.3 GM/DL (3.4-5.0); AST (GOT) 16 U/L (15-37); BICARBONATE 29.8 MEQ/L (21.0-32.0); BLOOD UREA NITROGEN 9 MG/DL (7-18); CALCIUM 9.2 MG/DL (8.5-10.1); CHLORIDE 104 MEQ/L (98-107); CREATININE 0.78 MG/DL (0.50-1.00); GLOMERULAR FILTRATION RATE 100 ML/MIN (>89); GLUCOSE,RANDOM 108 MG/DL (74-106); LIPASE 155 U/L (73-393); SODIUM (NA) 140 MEQ/L (136-145)
[2017-04-07 00:12] LABS: LYMPHOCYTES 38 % (9-44); MONOCYTES 5 % (0-8); NEUTROPHIL # MANUAL DIFF 6.3 TH/MM3 (1.8-7.7); POLYS (SEG NEUTROPHILS) 55 % (16-70)
[2017-04-07 00:29] LABS: BACTERIA, URINE OCC /hpf; BLOOD, URINE LARGE (NEG); GLUCOSE,URINE NEG (NEG); HYALINE CAST, URINE 3 /lpf (RARE); KETONE, URINE TRACE mg/dL (NEG); MUCUS URINE MANY /lpf (OCC); NITRITE,URINE NEG (NEG); PH, URINE 5.5 (5.0-8.5); SQUAMOUS EPITHELIAL CELL URINE 5 /hpf (0-5); URINE COLOR YELLOW (YELLW/STRAW); URINE LEUKOCYTE ESTERASE LARGE (NEG)
[2017-04-07] MEDS ORDERED: ACETAMINOPHEN 325 MG TAB PO ONE (00:30)
[2017-04-07 00:31] LABS: BILIRUBIN, URINE NEG (NEG)
--- NOTE | 2017-04-07 00:58 | RADRPT ---
EXAM DATE/TIME: 04/07/2017 00:36 [facility] COMPARISON: CT BRAIN W/O CONTRAST, September 18, 2016, 0:56. INDICATIONS : Headache. RADIATION DOSE: 48.95 CTDIvol (mGy) MEDICAL HISTORY : Myocardial infarction. Congestive heart failure. Diabetes mellitus type 2.Hypertension, CVA SURGICAL HISTORY : D&C ENCOUNTER: Initial ACUITY: 1 day PAIN SCALE: 5/10 LOCATION: cranial TECHNIQUE: Multiple contiguous axial images were obtained of the head. Using automated exposure control and adj ustment of the mA and/or kV according to patient size, radiation dose was kept as low as reasonably a chievable to obtain optimal diagnostic quality images. DICOM format image data is available electro nically for review and comparison. FINDINGS: CEREBRUM: The ventricles are normal for age. No evidence of midline shift, mass lesion, hemorrhage or acute in farction. No extra-axial fluid collections are seen. POSTERIOR FOSSA: The cerebellum and brainstem are intact. The 4th ventricle is midline. The cerebellopontine angle i s unremarkable. EXTRACRANIAL: The visualized portion of the orbits is intact. SKULL: The calvaria is intact. No evidence of skull fracture. CONCLUSION: 1. No acute findings. Incidental stable dural calcifications compared with September 2016. Diego Issa MD on April 07, 2017 at 0:54 Board Certified Radiologist. This report was verified electronically.
[2017-04-07] MEDS ORDERED: MACR100C2 PO (01:11)
--- NOTE | 2017-04-07 19:03 | EKG ---
Date Performed: 04/06/2017 Time Performed: 23:19:50 PTAGE: 36 years EKG: Sinus rhythm Since previous tracing, no significant change noted NORMAL ECG PREVIOUS TRACING : 09/18/2016 06.25 DOCTOR: Winston Kelly Interpretating Date/Time 04/07/2017 19:01:50
== END 2017-04-07 01:35 | disposition home or self-care (01) ==
LOC: NEPC 20:41
DX: R51 Headache (principal); I11.0 Hypertensive heart disease with heart failure; I50.9 Heart failure, unspecified; N30.01 Acute cystitis with hematuria; R06.02 Shortness of breath; F12.90 Cannabis use, unspecified, uncomplicated
CPT/HCPCS: 70450; 71045; 80053; 81001; 82550; 82552; 83690; 84484; 84703; 85007; 85027; 85610; 85730; 87086; 93005